=== PATIENT | female | born 1950 | race Caucasian/White ===

== ENCOUNTER 2025-02-04 17:26 | Inpatient (IN) | payer MEDICARE, SELFPAY ==
--- NOTE | 2025-02-04 18:08 | PC.ADMIT ---
Patient arrived to the unit via stretcher at 1740. Alert and oriented x3, full code. 74year old female past medical history cognitive impairment, liver cirrhosis, HTN, A fib /flutter, alcohol use disorder, anxiety, severe major depressive disorder, and chronic PTSD, anxiety Recent visit to [facility] for evaluation for suicidal ideation with plan to slit throat. Upon admission patient appears withdrawn, quiet, stating I never have good day . Anam reports multiple stressors, example not being able to manage financially which makes her feel like suicide is the only resolution. Patient reports history of alcohol use but decline any recent alcohol use and does not feel it is a problem at this time. Skin assessed by this development writer and another RN found to be intact. VSS, patient oriented to the room and unit. Patient changed into hospital attire, no additional complaints at the time of admission.
[2025-02-04 18:21] VITALS: BMI 20.8
[2025-02-04 18:22] VITALS: BP 147/64; PULSE 60; RESP 16; TEMP 36.7; O2SAT 95
--- OUTSIDE RECORDS SUMMARY | 2025-02-04 19:09 | XMS_ITS | Clinical Summary ---
Author Organization [facility] ity Address [address] [place] [address] Care Team Providers Care Hearing Care Practitioner Name Role Phone Unavailable Primary Care Provider Unavailabl e Social History Tobacco Use Types Packs/Day Years Used Date Smoking Tobacco: Never Assessed Comments Unknown Sex and Gender Information Value Date Recorded Sex Assigned at Not on file Legal Sex Female 5:10 PM EST Gender Identity Not on file Sexual Orientation Not on file Plan of Treatment Health Maintenance Due Date Last Done Comments DTaP,Tdap,and Td Vaccines (1 - Tdap) 1969 Pneumococcal Vaccine: 50+ Ye ars (1 of 1 - PCV) 09/01/1999 Zoster Vaccines (1 of 2) 09/01/1999 Depression Screening 03/26/2024 RSV Immunization Adult Patie nts (1 - 1-dose 75+ series) 2024 COVID-19 Vaccine ( - 2024-2 6 season) 2024 Influenza Vaccine (#1) 2024 HIB Vaccines Aged Out No longer eligi ble based on patient's age to complete this topic HPV Vaccines Aged Out No longer eligi ble based on patient's age to complete this topic Hepatitis A Vaccines Aged Out No long er eligible based on patient's age to complete this topic Hepatitis B Vaccines Aged Out No long er eligible based on patient's age to complete this topic IPV Vaccines Aged Out No longer eligi ble based on patient's age to complete this topic MMR Vaccines Aged Out No longer eligi ble based on patient's age to complete this topic Meningococcal ACWY Vaccine Aged Out N o longer eligible based on patient's age to complete this topic Meningococcal B Vaccine Aged Out No l onger eligible based on patient's age to complete this topic RSV Immunization Patients Un asima 20 months Aged Out No longer eligible b ased on patient's age to complete this topic Varicella Vaccines Aged Out No longer eligible based on patient's age to complete this topic
[2025-02-04 20:00] VITALS: BP 125/56; PULSE 59; RESP 16; TEMP 36.8; O2SAT 97
[2025-02-04 21:35] VITALS: BP 128/60
[2025-02-05 08:08] LABS: INTERNATIONAL NORM RATIO 1.3 (0.9-1.1); Prothrombin Time 15.9 SEC (11.2-13.5)
[2025-02-05 08:15] LABS: Alanine Aminotransferase 19 U/L (0-31); Albumin Level 3.9 g/dL (3.5-5.0); Alkaline Phosphatase 54 U/L (39-117); Anion Gap 11 (12-20); Aspartate Amino Transferase 24 U/L (5-31); Blood Urea Nitrogen 22 mg/dL (9-16); Calcium 10.0 mg/dL (8.4-10.2); Carbon Dioxide 28 mmol/L (22-29); Chloride 106 mmol/L (96-108); Cholesterol 157 mg/dL (<200); Creatinine Clr Calc Pharmacy 44.1; Estimated Glomerular Filt Rate > 60; HDL Cholesterol 38 mg/dL (>40); Magnesium 2.2 mg/dL (1.6-2.6); Potassium 3.9 mmol/L (3.3-5.1); Sodium 141 mmol/L (135-145); Total Protein 6.5 g/dL (6.5-8.0); Triglycerides 101 mg/dL (<150)
--- NOTE | 2025-02-05 08:24 | HO.PM.IMCN ---
History of Present Illness Data of Consult Service Date: 02/05/25 Primary Care Provider: Carmina Massey MD [facility] Reason for consult: Medical consult 74-year-old female with past medical history of anxiety and depression, Cognitive impairment, liver cirrhosis, atrial fibrillation or flutter awaiting Watchman procedure, PTSD, alcohol use disorder, hypertension and hyperlipidemia. Presented to [facility] with suicidal ideation. during the ED visit she had episode of bradycardia, subsequently her diltiazem was discontinued. It was not felt that she needed a pacemaker at that time, she is followed by Cardiology outpatient and awaiting a Watchman procedure. Her EKG revealed normal sinus rhythm with a first-degree AV block. electrolytes reveal chronic kidney disease, no electrolyte imbalances, no evidence of liver impairment, ammonia level within normal limits. On exam she has no medical concerns. Review of Systems Review of Systems: Denies any shortness of breath, chest pain, headaches, dysuria, abdominal pain or discomfort, nausea, vomiting or diarrhea. Denies fever or chills. PMFSH Social History Household Members: None Housing: Apartment Do you presently have visiting nurse or other home services: No Comment: on five minute checks Patient Tobacco Use Status: Never used Tobacco Smoked in Last 30 Days: No e-Cigarette/Vaping Use: Never Used Patient Interested in Nicotine Replacement: No Patient Given Instructions on How to Stop Smoking: No Second Hand Smoke Exposure: No Currently Displaying Signs/Symptoms of Drug Intoxication Withdrawal: No Have you been hit, kicked, punched, or otherwise hurt by someone within the past year? If so, by whom?: No Do you feel safe in your current relationship?: No Current Relationship Is there a partner from a previous relationship who is making you feel unsafe now?: No Are you made to feel afraid or neglected: No Spiritual Healthcare Practices: baptism Advance Directives: No Advance Directives Information Provided: Yes Do you have thoughts of harming others: None Do you have a plan to hurt others: No Plan Recently lost weight without trying: Unsure Eating poorly because of decreased appetite: No Nutrition Risks: No Nutritional Risk Patient : No : No Poor oral hygiene: No Meds Allergies Allergy/AdvReac Type Severity Reaction Status Date / Time No Known Allergies Allergy Verified 02/04/25 17:54 Active Medications: Current Medications Acetaminophen (Acetaminophen 325 Mg Tablet) 650 mg PO Q6H PRN PRN Reason: Headache/Pain, Scale 1-10 Al Hydroxide/Mg Hydroxide (Magnesium Hydrox/Alum Hydrox 30 Ml Oral.Susp) 30 ml PO Q6H PRN PRN Reason: Heartburn/Nausea Aripiprazole (Aripiprazole 2 Mg Tablet) 2 mg PO DAILY [facility] Buspirone HCl (Buspirone Hcl 5 Mg Tablet) 15 mg PO BID [facility] Last Admin: 02/04/25 21:34 Dose: 15 mg Clonidine HCl (Clonidine Hcl 0.1 Mg Tablet) 0.1 mg PO BID [facility]; Protocol Last Admin: 02/04/25 21:35 Dose: 0.1 mg Cyanocobalamin (Cyanocobalamin (Vitamin B-12) 100 Mcg Tablet) 100 mcg PO DAILY [facility] Donepezil HCl (Donepezil Hcl 10 Mg Tablet) 10 mg PO DAILY [facility] Folic Acid (Folic Acid 1 Mg Tablet) 1 mg PO DAILY [facility] Hydralazine HCl (Hydralazine Hcl 25 Mg Tablet) 25 mg PO TID [facility]; Protocol Last Admin: 02/04/25 21:35 Dose: 25 mg Hydroxyzine HCl (Hydroxyzine Hcl 25 Mg Tablet) 25 mg PO Q6H PRN PRN Reason: mild anxiety Magnesium Hydroxide (Milk Of Magnesia 30 Ml Oral.Susp) 30 ml PO DAILY PRN PRN Reason: Constipation Melatonin (Melatonin 3 Mg Tablet) 3 mg PO BEDTIME PRN PRN Reason: Insomnia Last Admin: 02/04/25 21:35 Dose: 3 mg Mirtazapine (Mirtazapine 30 Mg Tablet) 30 mg PO BEDTIME RITA Last Admin: 02/04/25 21:35 Dose: 30 mg Multivitamins/Vitamin C (Multivitamin Tablet) 1 tab PO DAILY [facility] Nicotine (Nicotine 21 Mg Patch.Td24) 21 mg TRANSDERMA DAILY PRN PRN Reason: nicotine craving Nicotine Polacrilex (Nicotine Polacrilex 2 Mg Gum) 2 mg BUCCAL Q2H PRN PRN Reason: Nicotine Cravings Olanzapine (Olanzapine 5 Mg Tablet) 5 mg PO BID PRN PRN Reason: agitation Spironolactone (Spironolactone 25 Mg Tablet) 25 mg PO DAILY [facility]; Protocol Thiamine HCl (Thiamine Hcl 100 Mg Tablet) 100 mg PO DAILY [facility] Trazodone HCl (Trazodone Hcl 50 Mg Tablet) 50 mg PO BEDTIME MRX1 PRN PRN Reason: Insomnia Trazodone HCl (Trazodone Hcl 50 Mg Tablet) 50 mg PO BEDTIME RITA Last Admin: 02/04/25 21:35 Dose: 50 mg Home Medications ?Medication ?Instructions ?Recorded ?Confirmed ?Last Taken ?Type aripiprazole 2 mg tablet 2 mg PO DAILY 02/04/25 02/04/25 Unknown History buspirone 15 mg tablet 15 mg PO BID 02/04/25 02/04/25 Unknown History clonidine HCl 0.1 mg tablet 0.1 mg PO BID 02/04/25 02/04/25 Unknown History cyanocobalamin (vitamin B-12) 100 100 mcg PO DAILY 02/04/25 02/04/25 02/04/25 09:00 History mcg tablet donepezil 10 mg tablet 10 mg PO DAILY 02/04/25 02/04/25 Unknown History folic acid 1 mg tablet 1 mg PO DAILY 02/04/25 02/04/25 Unknown History hydralazine 25 mg tablet 25 mg PO TID 02/04/25 02/04/25 Unknown History melatonin 3 mg tablet 3 mg PO BEDTIME PRN Insomnia 02/04/25 02/04/25 Unknown History mirtazapine 30 mg tablet 30 mg PO BEDTIME 02/04/25 02/04/25 Unknown History multivitamin 1 tab PO DAILY 02/04/25 02/04/25 02/04/25 09:00 History spironolactone 25 mg tablet 25 mg PO DAILY 02/04/25 02/04/25 Unknown History thiamine HCl (vitamin B1) 100 mg 100 mg PO DAILY 02/04/25 02/04/25 02/04/25 09:00 History tablet trazodone 50 mg tablet 50 mg PO BEDTIME 02/04/25 02/04/25 Unknown History warfarin 2.5 mg tablet 2.5 - 5 mg PO DAILY 02/04/25 02/04/25 Unknown History Physical Exam Vital Signs and Narrative: Vital Signs: Last Vital Signs Temp 98.3 F 02/04/25 20:00 Pulse 59 02/04/25 20:00 Resp 16 02/04/25 20:00 BP 128/60 02/04/25 21:35 Pulse Ox 97 02/04/25 20:00 O2 Del Method Room Air 02/04/25 20:00 BMI result Body Mass Index 20.8 Alert, cooperative. Neuro: CN II-X11 intact, no deficits, visual acuity intact EYES: PERRLA, EOM intact ENT: Hearing intact, MMM Cardiac: S1 S2 RRR, No ectopy Pulmonary: lungs clear to auscultation, No increased WOB. Abdominal: BS active in all 4 quadrants, no guarding or tenderness MSK: Strength 5/5 upper and lower extremities : Deferred Extremities: No edema in lower extremities Psych: Flat affect, appears fearful and suspicious Skin: Warm and dry, Intact Results Labs 02/05/25 07:21 Labs: Laboratory Results - last 24 hr 02/05/25 07:21 PT 15.9 H INR 1.3 H Anion Gap 11 L Estim Creat Clear Calc 44.1 Estimated GFR > 60 Random Glucose 86 Estimat Average Glucose 108 Hemoglobin A1c % 5.4 Calcium 10.0 Magnesium 2.2 Total Bilirubin 0.3 Direct Bilirubin 0.1 AST 24 ALT 19 Alkaline Phosphatase 54 Total Protein 6.5 Albumin 3.9 Triglycerides 101 Cholesterol 157 LDL Cholesterol, Calc 99 HDL Cholesterol 38 L Assessment and Plan (1) HTN (hypertension): Status: Acute (2) Atrial fibrillation: Status: Acute (3) HLD (hyperlipidemia): Status: Acute Plan 74-year-old female with past medical history as listed below presented to the emergency room with suicide ideation. Now admitted for further stabilization Anxiety/depression/PTSD/cognitive impairment/alcohol use disorder Treatment per psychiatric team Folic acid, thiamine, cyanocobalamin, MVI supplementation AFib/a flutter Continue on warfarin. Daily INRs Patient is awaiting a Watchman procedure Follow up with outpatient Cardiology Not on rate control medications Vitamin-D deficiency Continue on supplementation Hypertension/hyperlipidemia Continue clonidine and hydralazine Blood pressure on review is stable Not on a statin History of liver cirrhosis/alcohol use disorder Follow up outpatient Periodically monitor LFTs Thank you for allowing me to participate in the care of this patient. Will follow with you, please notify medical provider with any changes in condition or concerns.
[2025-02-05 08:31] VITALS: BP 132/61; PULSE 68; RESP 18; TEMP 36.6; O2SAT 98
[2025-02-05 08:32] LABS: Free T4 (Free Thyroxine) 1.12 ng/dL (0.71-1.85); Thyroid Stimulating Hormone 1.09 uIU/mL (0.32-4.0)
[2025-02-05 08:45] LABS: Folate 14.6 ng/mL (> or = 4.0); Vitamin B12 626 pg/mL (200-900)
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
[2025-02-05 14:25] VITALS: BP 153/70; PULSE 77
[2025-02-05 20:00] VITALS: BP 134/63; PULSE 63; RESP 18; TEMP 36.7; O2SAT 97
[2025-02-05 21:39] VITALS: BP 138/65
[2025-02-05 21:40] VITALS: BP 138/65
[2025-02-06 08:00] VITALS: BP 142/65; PULSE 76; RESP 18; TEMP 36.8; O2SAT 96
[2025-02-06 08:07] LABS: INTERNATIONAL NORM RATIO 1.3 (0.9-1.1); Prothrombin Time 15.5 SEC (11.2-13.5)
--- NOTE | 2025-02-06 09:11 | HO.PSYCHPN ---
Subjective Subjective Date of Service: 02/06/25 Reason For Visit: Orly Mdd w/o Psychosis;PTSD Subjective Notes: Conditional Voluntary Interim History: Pt reports sleeping through the night. She continues to present as very hopeless, helpless. No intent to end her life but continues to report suicidal ideation. She would like to see more programming. also would like to meet with financial services director. No behavioral concerns. taking medications. Mental Status Exam Mental Status Exam Narrative: Appearance: wearing hospital gown, fair hygiene, in NAD Behavior: guarded, superficially cooperative Psychomotor: mild resting/action tremor on right hand more than left. Speech: clear, normal rate/rhythm/volume, spontaneous TP: linear TC: feeling hopeless, yet asked to go to hospital and seeking help Mood: depressed Affect: constricted SI: suicidal thoughts, denies intent on basis of congregational concern and affecting close friend. HI: none VH/AH: none Delusions: none Insight/judgment: fair x 2. memory/cog: alert, oriented x 3. MOCA 20/30, ACL 3.6 Diagnostics Vital Signs (24Hr): Vital Signs - 24 hr 02/05/25 14:25 02/05/25 20:00 02/05/25 21:39 Temperature 98.1 F Pulse Rate 77 63 Respiratory Rate 18 Blood Pressure 153/70 H 134/63 138/65 Pulse Oximetry 97 Oxygen Delivery Method Room Air 02/05/25 21:40 02/06/25 08:00 Temperature 98.2 F Pulse Rate 76 Respiratory Rate 18 Blood Pressure 138/65 142/65 H Pulse Oximetry 96 Oxygen Delivery Method Room Air BMI result Body Mass Index 20.0 Labs 02/05/25 07:21 Labs: Laboratory Results - last 48 hr 02/05/25 02/06/25 07:21 07:26 PT 15.9 H 15.5 H INR 1.3 H 1.3 H Sodium 141 Potassium 3.9 Chloride 106 Carbon Dioxide 28 Anion Gap 11 L BUN 22 H Creatinine 0.87 Estim Creat Clear Calc 44.1 Estimated GFR > 60 Random Glucose 86 Estimat Average Glucose 108 Hemoglobin A1c % 5.4 Calcium 10.0 Magnesium 2.2 Total Bilirubin 0.3 Direct Bilirubin 0.1 AST 24 ALT 19 Alkaline Phosphatase 54 Total Protein 6.5 Albumin 3.9 Triglycerides 101 Cholesterol 157 LDL Cholesterol, Calc 99 HDL Cholesterol 38 L Vitamin B12 626 Folate 14.6 TSH 1.09 Free T4 1.12 Medications Medications Current Medications Acetaminophen (Acetaminophen 325 Mg Tablet) 650 mg PO Q6H PRN PRN Reason: Headache/Pain, Scale 1-10 Last Admin: 02/05/25 21:44 Dose: 650 mg Al Hydroxide/Mg Hydroxide (Magnesium Hydrox/Alum Hydrox 30 Ml Oral.Susp) 30 ml PO Q6H PRN PRN Reason: Heartburn/Nausea Aripiprazole (Aripiprazole 5 Mg Tablet) 5 mg PO DAILY [facility] Buspirone HCl (Buspirone Hcl 5 Mg Tablet) 15 mg PO BID [facility] Last Admin: 02/05/25 21:40 Dose: 15 mg Clonidine HCl (Clonidine Hcl 0.1 Mg Tablet) 0.1 mg PO BID [facility]; Protocol Last Admin: 02/05/25 21:39 Dose: 0.1 mg Cyanocobalamin (Cyanocobalamin (Vitamin B-12) 100 Mcg Tablet) 100 mcg PO DAILY [facility] Last Admin: 02/05/25 08:34 Dose: 100 mcg Donepezil HCl (Donepezil Hcl 10 Mg Tablet) 10 mg PO DAILY [facility] Last Admin: 02/05/25 08:35 Dose: 10 mg Folic Acid (Folic Acid 1 Mg Tablet) 1 mg PO DAILY [facility] Last Admin: 02/05/25 08:34 Dose: 1 mg Hydralazine HCl (Hydralazine Hcl 25 Mg Tablet) 25 mg PO TID [facility]; Protocol Last Admin: 02/05/25 21:40 Dose: 25 mg Hydroxyzine HCl (Hydroxyzine Hcl 25 Mg Tablet) 25 mg PO Q6H PRN PRN Reason: mild anxiety Magnesium Hydroxide (Milk Of Magnesia 30 Ml Oral.Susp) 30 ml PO DAILY PRN PRN Reason: Constipation Melatonin (Melatonin 3 Mg Tablet) 3 mg PO BEDTIME PRN PRN Reason: Insomnia Last Admin: 02/05/25 21:45 Dose: 3 mg Mirtazapine (Mirtazapine 30 Mg Tablet) 30 mg PO BEDTIME [facility] Last Admin: 02/05/25 21:40 Dose: 30 mg Multivitamins/Vitamin C (Multivitamin Tablet) 1 tab PO DAILY [facility] Last Admin: 02/05/25 08:35 Dose: 1 tab Nicotine (Nicotine 21 Mg Patch.Td24) 21 mg TRANSDERMA DAILY PRN PRN Reason: nicotine craving Nicotine Polacrilex (Nicotine Polacrilex 2 Mg Gum) 2 mg BUCCAL Q2H PRN PRN Reason: Nicotine Cravings Olanzapine (Olanzapine 5 Mg Tablet) 5 mg PO BID PRN PRN Reason: agitation Spironolactone (Spironolactone 25 Mg Tablet) 25 mg PO DAILY [facility]; Protocol Last Admin: 02/05/25 08:34 Dose: 25 mg Thiamine HCl (Thiamine Hcl 100 Mg Tablet) 100 mg PO DAILY [facility] Last Admin: 02/05/25 08:34 Dose: 100 mg Trazodone HCl (Trazodone Hcl 50 Mg Tablet) 50 mg PO BEDTIME MRX1 PRN PRN Reason: Insomnia Trazodone HCl (Trazodone Hcl 50 Mg Tablet) 50 mg PO BEDTIME [facility] Last Admin: 02/05/25 21:41 Dose: 50 mg Allergies Allergies Allergy/AdvReac Type Severity Reaction Status Date / Time No Known Allergies Allergy Verified 02/04/25 17:54 Assessment & Plan Assessment & Plan (1) HTN (hypertension): Status: Acute Code(s): I10 - Essential (primary) hypertension (2) Atrial fibrillation: Status: Acute Code(s): I48.91 - Unspecified atrial fibrillation (3) HLD (hyperlipidemia): Status: Acute Code(s): E78.5 - Hyperlipidemia, unspecified (4) MDD (major depressive disorder), recurrent episode, severe: Status: Acute Code(s): F33.2 - Major depressive disorder, recurrent severe without psychotic features (5) Chronic post-traumatic stress disorder (PTSD): Status: Acute Code(s): F43.12 - Post-traumatic stress disorder, chronic Plan Ms. Trevino is a 74 year-old woman with hx of MDD, PTSD, alcohol use disorder in remission who was brought via EMS to [facility] after told friend that she was having suicidal ideation with multiple plans including electrocution, OD on meds or cut her wrist. Pt was voluntary for psychiatric treatment and had reported prior psychiatric admissions to be helpful. She continues to present as hopeless, helpless, suicidal ideation although denies intent to end her life due to spiritual believes and concern of how it would impact her close friend Nimco. We discussed risks, benefits and alternative treatment options. During ED visit at [facility], pt found to be bradycardic, diltiazam was discontinued, seen by cardiology did not recommend pacemaker placement and she is due OP for a watchman procedure. However, during this hospitalist, will continue to monitor s/s of bradycardia and if noted cardiology should be consulted promptly. She is currently on clonidine although less impact on HR continue to monitor BP. She is also on aricept which does cause bradycardia. Currently, her HR has been >60. PLAN 02/06 continue tx. hopeless, helpless. may consider adding venlafaxine to remeron and abilify. Reason for continued inpatient stay Substantial Risk for: harm to self and rapid decompensation Time Spent With Patient Time: Total time managing care of this patient today ____ minutes.
[2025-02-06 14:28] VITALS: BP 141/109
[2025-02-06 20:00] VITALS: BP 123/59; PULSE 70; RESP 16; TEMP 36.3; O2SAT 96
[2025-02-07 08:00] VITALS: BP 117/57; PULSE 90; RESP 15; TEMP 2.7; TEMP 36.9; O2SAT 95
[2025-02-07 08:53] LABS: INTERNATIONAL NORM RATIO 1.6 (0.9-1.1); Prothrombin Time 19.1 SEC (11.2-13.5)
--- NOTE | 2025-02-07 09:25 | P.PNPSI_ITS ---
Subjective Subjective Date of Service: 02/07/25 Reason For Visit: Orly Mdd w/o Psychosis;PTSD Interim History: Reports feeling depressed and anxious. Appears irritated. Poor EC. Jerry responses. Dysphoric. Denies SI. Denies AVH. Tolerating increase Abilify without side effects. Review of Systems Review of Systems Denies any shortness of breath, chest pain, headaches, dysuria, abdominal pain or discomfort, nausea, vomiting or diarrhea. Denies fever or chills. Mental Status Exam Mental Status Exam Narrative: Appearance: wearing hospital gown, fair hygiene, in NAD Behavior: guarded, superficially cooperative Psychomotor: mild resting/action tremor on right hand more than left. Speech: clear, normal rate/rhythm/volume, spontaneous TP: linear TC: feeling hopeless, yet asked to go to hospital and seeking help Mood: depressed Affect: constricted SI: suicidal thoughts, denies intent on basis of jewish concern and affecting close friend. HI: none VH/AH: none Delusions: none Insight/judgment: fair x 2. memory/cog: alert, oriented x 3. MOCA 20/30, ACL 3.6 Diagnostics Vital Signs (24Hr): Vital Signs - 24 hr 02/06/25 14:28 02/06/25 20:00 02/07/25 08:00 Temperature 97.3 F 36.9 F L Pulse Rate 70 90 Respiratory Rate 16 15 Blood Pressure 141/109 H 123/59 L 117/57 L Pulse Oximetry 96 95 Oxygen Delivery Method Room Air Room Air BMI result Body Mass Index 20.0 Labs 02/05/25 07:21 Labs: Laboratory Results - last 48 hr 02/06/25 02/07/25 07:26 08:32 PT 15.5 H 19.1 H D INR 1.3 H 1.6 H Medications Medications Current Medications Acetaminophen (Acetaminophen 325 Mg Tablet) 650 mg PO Q6H PRN PRN Reason: Headache/Pain, Scale 1-10 Last Admin: 02/06/25 14:28 Dose: 650 mg Al Hydroxide/Mg Hydroxide (Magnesium Hydrox/Alum Hydrox 30 Ml Oral.Susp) 30 ml PO Q6H PRN PRN Reason: Heartburn/Nausea Aripiprazole (Aripiprazole 5 Mg Tablet) 5 mg PO DAILY [facility] Last Admin: 02/07/25 08:59 Dose: 5 mg Buspirone HCl (Buspirone Hcl 5 Mg Tablet) 15 mg PO BID [facility] Last Admin: 02/07/25 08:58 Dose: 15 mg Clonidine HCl (Clonidine Hcl 0.1 Mg Tablet) 0.1 mg PO BID [facility]; Protocol Last Admin: 02/07/25 09:00 Dose: 0.1 mg Cyanocobalamin (Cyanocobalamin (Vitamin B-12) 100 Mcg Tablet) 100 mcg PO DAILY [facility] Last Admin: 02/07/25 09:00 Dose: 100 mcg Donepezil HCl (Donepezil Hcl 10 Mg Tablet) 10 mg PO DAILY [facility] Last Admin: 02/07/25 08:58 Dose: 10 mg Folic Acid (Folic Acid 1 Mg Tablet) 1 mg PO DAILY [facility] Last Admin: 02/07/25 09:00 Dose: 1 mg Hydralazine HCl (Hydralazine Hcl 25 Mg Tablet) 25 mg PO TID [facility]; Protocol Last Admin: 02/07/25 08:59 Dose: 25 mg Hydroxyzine HCl (Hydroxyzine Hcl 25 Mg Tablet) 25 mg PO Q6H PRN PRN Reason: mild anxiety Last Admin: 02/06/25 12:13 Dose: 25 mg Lorazepam (Lorazepam 0.5 Mg Tablet) 0.5 mg PO Q8H PRN PRN Reason: Anxiety Magnesium Hydroxide (Milk Of Magnesia 30 Ml Oral.Susp) 30 ml PO DAILY PRN PRN Reason: Constipation Melatonin (Melatonin 3 Mg Tablet) 3 mg PO BEDTIME PRN PRN Reason: Insomnia Last Admin: 02/06/25 20:17 Dose: 3 mg Mirtazapine (Mirtazapine 30 Mg Tablet) 30 mg PO BEDTIME [facility] Last Admin: 02/06/25 20:15 Dose: 30 mg Multivitamins/Vitamin C (Multivitamin Tablet) 1 tab PO DAILY [facility] Last Admin: 02/07/25 08:58 Dose: 1 tab Nicotine (Nicotine 21 Mg Patch.Td24) 21 mg TRANSDERMA DAILY PRN PRN Reason: nicotine craving Nicotine Polacrilex (Nicotine Polacrilex 2 Mg Gum) 2 mg BUCCAL Q2H PRN PRN Reason: Nicotine Cravings Olanzapine (Olanzapine 5 Mg Tablet) 5 mg PO BID PRN PRN Reason: agitation Spironolactone (Spironolactone 25 Mg Tablet) 25 mg PO DAILY [facility]; Protocol Last Admin: 02/07/25 08:59 Dose: 25 mg Thiamine HCl (Thiamine Hcl 100 Mg Tablet) 100 mg PO DAILY [facility] Last Admin: 02/07/25 08:58 Dose: 100 mg Trazodone HCl (Trazodone Hcl 50 Mg Tablet) 50 mg PO BEDTIME MRX1 PRN PRN Reason: Insomnia Trazodone HCl (Trazodone Hcl 50 Mg Tablet) 50 mg PO BEDTIME [facility] Last Admin: 02/06/25 20:15 Dose: 50 mg Warfarin Sodium (Warfarin Sodium 5 Mg Tablet) 5 mg PO DAILY@1800 [facility] Last Admin: 02/06/25 17:13 Dose: 5 mg Allergies Allergies Allergy/AdvReac Type Severity Reaction Status Date / Time No Known Allergies Allergy Verified 02/04/25 17:54 Assessment & Plan Assessment & Plan (1) MDD (major depressive disorder), recurrent episode, severe: Status: Acute Code(s): F33.2 - Major depressive disorder, recurrent severe without psychotic features (2) Chronic post-traumatic stress disorder (PTSD): Status: Acute Code(s): F43.12 - Post-traumatic stress disorder, chronic Plan Assessment & Plan (1) MDD (major depressive disorder), recurrent episode, severe: Status: Acute Code(s): F33.2 - Major depressive disorder, recurrent severe without psychotic features (2) Chronic post-traumatic stress disorder (PTSD): Status: Acute Code(s): F43.12 - Post-traumatic stress disorder, chronic Plan Ms. Trevino is a 74 year-old woman with hx of MDD, PTSD, alcohol use disorder in remission who was brought via EMS to [facility] after told friend that she was having suicidal ideation with multiple plans including electrocution, OD on meds or cut her wrist. Pt was voluntary for psychiatric treatment and had reported prior psychiatric admissions to be helpful. She continues to present as hopeless, helpless, suicidal ideation although denies intent to end her life due to spiritual believes and concern of how it would impact her close friend Nimco. We discussed risks, benefits and alternative treatment options. During ED visit [place] [facility], pt found to be bradycardic, diltiazam was discontinued, seen by cardiology did not recommend pacemaker placement and she is due OP for a watchman procedure. However, during this hospitalist, will continue to monitor s/s of bradycardia and if noted cardiology should be consulted promptly. She is currently on clonidine although less impact on HR continue to monitor BP. She is also on aricept which does cause bradycardia. Currently, her HR has been >60. PLAN 1. Admit to S1, CV, 15 minutes checks for safety 2. Increase abilify to 5mg po daily. continue remeron 30mg po qhs. may consider adding effexor. continue clonidine, buspar. 3. obtain collateral information 4. OT assessments 5. Aftercare planning 02/07: continue current management and treatment plan. Reason for continued inpatient stay Substantial Risk for: harm to self and rapid decompensation Time Spent With Patient Time: Total time managing care of this patient today ____ minutes.
[2025-02-07 14:43] VITALS: BP 125/58
[2025-02-07 20:00] VITALS: BP 144/65; PULSE 66; RESP 16; TEMP 37.1; O2SAT 97
[2025-02-08 08:00] VITALS: BP 140/63; PULSE 70; TEMP 36.9; O2SAT 99
[2025-02-08 08:11] LABS: INTERNATIONAL NORM RATIO 1.9 (0.9-1.1); Prothrombin Time 22.8 SEC (11.2-13.5)
--- NOTE | 2025-02-08 12:26 | HO.PSYCHPN ---
Subjective Subjective Date of Service: 02/08/25 Reason For Visit: Orly Mdd w/o Psychosis;PTSD Interim History: Reports feeling depressed and anxious. Dysphoric. She is visible on the unit. Engages with some peers. Appears irritated. Poor EC. Jerry responses. Denies SI. Denies AVH. Tolerating increase Abilify without side effects. Review of Systems Review of Systems Denies any shortness of breath, chest pain, headaches, dysuria, abdominal pain or discomfort, nausea, vomiting or diarrhea. Denies fever or chills. Mental Status Exam Mental Status Exam Narrative: Appearance: wearing hospital gown, fair hygiene, in NAD Behavior: guarded, superficially cooperative Psychomotor: mild resting/action tremor on right hand more than left. Speech: clear, normal rate/rhythm/volume, spontaneous TP: linear TC: feeling hopeless, yet asked to go to hospital and seeking help Mood: depressed Affect: constricted SI: suicidal thoughts, denies intent on basis of jehovah's witness concern and affecting close friend. HI: none VH/AH: none Delusions: none Insight/judgment: fair x 2. memory/cog: alert, oriented x 3. MOCA 20/30, ACL 3.6 Diagnostics Vital Signs (24Hr): Vital Signs - 24 hr 02/07/25 14:43 02/07/25 20:00 02/08/25 08:00 Temperature 98.8 F 98.4 F Pulse Rate 66 70 Respiratory Rate 16 Blood Pressure 125/58 L 144/65 H 140/63 H Pulse Oximetry 97 99 Oxygen Delivery Method Room Air Room Air BMI result Body Mass Index 20.0 Labs 02/05/25 07:21 Labs: Laboratory Results - last 48 hr 02/07/25 02/08/25 08:32 07:50 PT 19.1 H D 22.8 H INR 1.6 H 1.9 H Medications Medications Current Medications Acetaminophen (Acetaminophen 325 Mg Tablet) 650 mg PO Q6H PRN PRN Reason: Headache/Pain, Scale 1-10 Last Admin: 02/08/25 11:56 Dose: 650 mg Al Hydroxide/Mg Hydroxide (Magnesium Hydrox/Alum Hydrox 30 Ml Oral.Susp) 30 ml PO Q6H PRN PRN Reason: Heartburn/Nausea Aripiprazole (Aripiprazole 5 Mg Tablet) 5 mg PO DAILY [facility] Last Admin: 02/08/25 09:07 Dose: 5 mg Buspirone HCl (Buspirone Hcl 5 Mg Tablet) 15 mg PO BID [facility] Last Admin: 02/08/25 09:06 Dose: 15 mg Clonidine HCl (Clonidine Hcl 0.1 Mg Tablet) 0.1 mg PO BID [facility]; Protocol Last Admin: 02/08/25 09:07 Dose: 0.1 mg Cyanocobalamin (Cyanocobalamin (Vitamin B-12) 100 Mcg Tablet) 100 mcg PO DAILY [facility] Last Admin: 02/08/25 09:07 Dose: 100 mcg Donepezil HCl (Donepezil Hcl 10 Mg Tablet) 10 mg PO DAILY [facility] Last Admin: 02/08/25 09:07 Dose: 10 mg Folic Acid (Folic Acid 1 Mg Tablet) 1 mg PO DAILY [facility] Last Admin: 02/08/25 09:07 Dose: 1 mg Hydralazine HCl (Hydralazine Hcl 25 Mg Tablet) 25 mg PO TID [facility]; Protocol Last Admin: 02/08/25 09:07 Dose: 25 mg Hydroxyzine HCl (Hydroxyzine Hcl 25 Mg Tablet) 25 mg PO Q6H PRN PRN Reason: mild anxiety Last Admin: 02/06/25 12:13 Dose: 25 mg Lorazepam (Lorazepam 0.5 Mg Tablet) 0.5 mg PO Q8H PRN PRN Reason: Anxiety Last Admin: 02/07/25 21:07 Dose: 0.5 mg Magnesium Hydroxide (Milk Of Magnesia 30 Ml Oral.Susp) 30 ml PO DAILY PRN PRN Reason: Constipation Melatonin (Melatonin 3 Mg Tablet) 3 mg PO BEDTIME PRN PRN Reason: Insomnia Last Admin: 02/07/25 21:07 Dose: 3 mg Mirtazapine (Mirtazapine 30 Mg Tablet) 30 mg PO BEDTIME [facility] Last Admin: 02/07/25 21:06 Dose: 30 mg Multivitamins/Vitamin C (Multivitamin Tablet) 1 tab PO DAILY [facility] Last Admin: 02/08/25 09:07 Dose: 1 tab Nicotine (Nicotine 21 Mg Patch.Td24) 21 mg TRANSDERMA DAILY PRN PRN Reason: nicotine craving Nicotine Polacrilex (Nicotine Polacrilex 2 Mg Gum) 2 mg BUCCAL Q2H PRN PRN Reason: Nicotine Cravings Olanzapine (Olanzapine 5 Mg Tablet) 5 mg PO BID PRN PRN Reason: agitation Spironolactone (Spironolactone 25 Mg Tablet) 25 mg PO DAILY [facility]; Protocol Last Admin: 02/08/25 09:06 Dose: 25 mg Thiamine HCl (Thiamine Hcl 100 Mg Tablet) 100 mg PO DAILY [facility] Last Admin: 02/08/25 09:07 Dose: 100 mg Trazodone HCl (Trazodone Hcl 50 Mg Tablet) 50 mg PO BEDTIME MRX1 PRN PRN Reason: Insomnia Trazodone HCl (Trazodone Hcl 50 Mg Tablet) 50 mg PO BEDTIME [facility] Last Admin: 02/07/25 21:07 Dose: 50 mg Warfarin Sodium (Warfarin Sodium 5 Mg Tablet) 5 mg PO DAILY@1800 [facility] Last Admin: 02/07/25 17:58 Dose: 5 mg Allergies Allergies Allergy/AdvReac Type Severity Reaction Status Date / Time No Known Allergies Allergy Verified 02/04/25 17:54 Assessment & Plan Assessment & Plan (1) MDD (major depressive disorder), recurrent episode, severe: Status: Acute Code(s): F33.2 - Major depressive disorder, recurrent severe without psychotic features (2) Chronic post-traumatic stress disorder (PTSD): Status: Acute Code(s): F43.12 - Post-traumatic stress disorder, chronic Plan Ms. Trevino is a 74 year-old woman with hx of MDD, PTSD, alcohol use disorder in remission who was brought via EMS to [facility] after told friend that she was having suicidal ideation with multiple plans including electrocution, OD on meds or cut her wrist. Pt was voluntary for psychiatric treatment and had reported prior psychiatric admissions to be helpful. She continues to present as hopeless, helpless, suicidal ideation although denies intent to end her life due to spiritual believes and concern of how it would impact her close friend Nimco. We discussed risks, benefits and alternative treatment options. During ED visit at [facility] [place], pt found to be bradycardic, diltiazam was discontinued, seen by cardiology did not recommend pacemaker placement and she is due OP for a watchman procedure. However, during this hospitalist, will continue to monitor s/s of bradycardia and if noted cardiology should be consulted promptly. She is currently on clonidine although less impact on HR continue to monitor BP. She is also on aricept which does cause bradycardia. Currently, her HR has been >60. PLAN 1. Admit to S1, CV, 15 minutes checks for safety 2. Increase abilify to 5mg po daily. continue remeron 30mg po qhs. may consider adding effexor. continue clonidine, buspar. 3. obtain collateral information 4. OT assessments 5. Aftercare planning 02/08: continue current management and treatment plan. Reason for continued inpatient stay Substantial Risk for: harm to self and rapid decompensation Time Spent With Patient Time: Total time managing care of this patient today ____ minutes.
[2025-02-08 14:08] VITALS: BP 116/58
[2025-02-08 20:00] VITALS: BP 145/67; PULSE 68; RESP 16; TEMP 36.3; O2SAT 97
[2025-02-09 07:55] LABS: INTERNATIONAL NORM RATIO 2.5 (0.9-1.1); Prothrombin Time 30.0 SEC (11.2-13.5)
[2025-02-09 08:40] VITALS: BP 118/58; PULSE 73; RESP 16; TEMP 36.1; O2SAT 95
--- NOTE | 2025-02-09 10:37 | HO.PSYCHPN ---
Subjective Subjective Date of Service: 02/09/25 Reason For Visit: Orly Mdd w/o Psychosis;PTSD Subjective Notes: Conditional Voluntary Interim History: Pt slept through the night. She continues to endorse depressed mood, hopeless, helpless. She continues to report passive SI. She wants friend to have keys of her apartment but unclear reason as friend is in [place]. She had made comments about if she dies friend to be able to assess her apartment. We discussed increasing abilify to 10mg po daily as she reports this has been the medication that has helped her the most. Mental Status Exam Mental Status Exam Narrative: Appearance: wearing hospital gown, fair hygiene, in NAD Behavior: guarded, superficially cooperative Psychomotor: mild resting/action tremor on right hand more than left. Speech: clear, normal rate/rhythm/volume, spontaneous TP: linear TC: feeling hopeless, yet asked to go to hospital and seeking help Mood: depressed Affect: constricted SI: suicidal thoughts, denies intent on basis of confucianist concern and affecting close friend. HI: none VH/AH: none Delusions: none Insight/judgment: fair x 2. memory/cog: alert, oriented x 3. MOCA 20/30, ACL 3.6 Diagnostics Vital Signs (24Hr): Vital Signs - 24 hr 02/08/25 14:08 02/08/25 20:00 02/09/25 08:40 Temperature 97.4 F 97 F Pulse Rate 68 73 Respiratory Rate 16 16 Blood Pressure 116/58 L 145/67 H 118/58 L Pulse Oximetry 97 95 Oxygen Delivery Method Room Air Room Air BMI result Body Mass Index 20.0 Labs 02/05/25 07:21 Labs: Laboratory Results - last 48 hr 02/08/25 02/09/25 07:50 07:11 PT 22.8 H 30.0 H D INR 1.9 H 2.5 H Medications Medications Current Medications Acetaminophen (Acetaminophen 325 Mg Tablet) 650 mg PO Q6H PRN PRN Reason: Headache/Pain, Scale 1-10 Last Admin: 02/08/25 20:37 Dose: 650 mg Al Hydroxide/Mg Hydroxide (Magnesium Hydrox/Alum Hydrox 30 Ml Oral.Susp) 30 ml PO Q6H PRN PRN Reason: Heartburn/Nausea Aripiprazole (Aripiprazole 5 Mg Tablet) 5 mg PO DAILY [facility] Last Admin: 02/09/25 09:39 Dose: 5 mg Buspirone HCl (Buspirone Hcl 5 Mg Tablet) 15 mg PO BID [facility] Last Admin: 02/09/25 09:37 Dose: 15 mg Clonidine HCl (Clonidine Hcl 0.1 Mg Tablet) 0.1 mg PO BID [facility]; Protocol Last Admin: 02/09/25 09:39 Dose: 0.1 mg Cyanocobalamin (Cyanocobalamin (Vitamin B-12) 100 Mcg Tablet) 100 mcg PO DAILY [facility] Last Admin: 02/09/25 09:39 Dose: 100 mcg Donepezil HCl (Donepezil Hcl 10 Mg Tablet) 10 mg PO DAILY [facility] Last Admin: 02/09/25 09:40 Dose: 10 mg Folic Acid (Folic Acid 1 Mg Tablet) 1 mg PO DAILY [facility] Last Admin: 02/09/25 09:39 Dose: 1 mg Hydralazine HCl (Hydralazine Hcl 25 Mg Tablet) 25 mg PO TID [facility]; Protocol Last Admin: 02/09/25 09:38 Dose: 25 mg Hydroxyzine HCl (Hydroxyzine Hcl 25 Mg Tablet) 25 mg PO Q6H PRN PRN Reason: mild anxiety Last Admin: 02/06/25 12:13 Dose: 25 mg Lorazepam (Lorazepam 0.5 Mg Tablet) 0.5 mg PO Q8H PRN PRN Reason: Anxiety Last Admin: 02/08/25 20:37 Dose: 0.5 mg Magnesium Hydroxide (Milk Of Magnesia 30 Ml Oral.Susp) 30 ml PO DAILY PRN PRN Reason: Constipation Melatonin (Melatonin 3 Mg Tablet) 3 mg PO BEDTIME PRN PRN Reason: Insomnia Last Admin: 02/08/25 20:37 Dose: 3 mg Mirtazapine (Mirtazapine 30 Mg Tablet) 30 mg PO BEDTIME [facility] Last Admin: 02/08/25 20:36 Dose: 30 mg Multivitamins/Vitamin C (Multivitamin Tablet) 1 tab PO DAILY [facility] Last Admin: 02/09/25 09:39 Dose: 1 tab Nicotine (Nicotine 21 Mg Patch.Td24) 21 mg TRANSDERMA DAILY PRN PRN Reason: nicotine craving Nicotine Polacrilex (Nicotine Polacrilex 2 Mg Gum) 2 mg BUCCAL Q2H PRN PRN Reason: Nicotine Cravings Olanzapine (Olanzapine 5 Mg Tablet) 5 mg PO BID PRN PRN Reason: agitation Spironolactone (Spironolactone 25 Mg Tablet) 25 mg PO DAILY [facility]; Protocol Last Admin: 02/09/25 09:38 Dose: 25 mg Thiamine HCl (Thiamine Hcl 100 Mg Tablet) 100 mg PO DAILY [facility] Last Admin: 02/09/25 09:39 Dose: 100 mg Trazodone HCl (Trazodone Hcl 50 Mg Tablet) 50 mg PO BEDTIME MRX1 PRN PRN Reason: Insomnia Trazodone HCl (Trazodone Hcl 50 Mg Tablet) 50 mg PO BEDTIME [facility] Last Admin: 02/08/25 20:36 Dose: 50 mg Warfarin Sodium (Warfarin Sodium 5 Mg Tablet) 5 mg PO DAILY@1800 [facility] Last Admin: 02/08/25 18:38 Dose: 5 mg Allergies Allergies Allergy/AdvReac Type Severity Reaction Status Date / Time No Known Allergies Allergy Verified 02/04/25 17:54 Assessment & Plan Assessment & Plan (1) MDD (major depressive disorder), recurrent episode, severe: Status: Acute Code(s): F33.2 - Major depressive disorder, recurrent severe without psychotic features (2) HTN (hypertension): Status: Acute Code(s): I10 - Essential (primary) hypertension (3) Atrial fibrillation: Status: Acute Code(s): I48.91 - Unspecified atrial fibrillation (4) HLD (hyperlipidemia): Status: Acute Code(s): E78.5 - Hyperlipidemia, unspecified (5) Chronic post-traumatic stress disorder (PTSD): Status: Acute Code(s): F43.12 - Post-traumatic stress disorder, chronic Plan Ms. Trevino is a 74 year-old woman with hx of MDD, PTSD, alcohol use disorder in remission who was brought via EMS to [facility] after told friend that she was having suicidal ideation with multiple plans including electrocution, OD on meds or cut her wrist. Pt was voluntary for psychiatric treatment and had reported prior psychiatric admissions to be helpful. She continues to present as hopeless, helpless, suicidal ideation although denies intent to end her life due to spiritual believes and concern of how it would impact her close friend Nimco. We discussed risks, benefits and alternative treatment options. During ED visit at [facility], pt found to be bradycardic, diltiazam was discontinued, seen by cardiology did not recommend pacemaker placement and she is due OP for a watchman procedure. However, during this hospitalist, will continue to monitor s/s of bradycardia and if noted cardiology should be consulted promptly. She is currently on clonidine although less impact on HR continue to monitor BP. She is also on aricept which does cause bradycardia. Currently, her HR has been >60. PLAN 02/06 continue tx. hopeless, helpless. may consider adding venlafaxine to remeron and abilify. 02/09 increase abilify 10mg po daily. continue remeron 30mg po qhs. Reason for continued inpatient stay Substantial Risk for: inability to function Time Spent With Patient Time: Total time managing care of this patient today ____ minutes.
[2025-02-09 14:17] VITALS: BP 151/69; PULSE 91; RESP 16; TEMP 36.6
[2025-02-09 20:00] VITALS: BP 133/62; PULSE 66; RESP 16; TEMP 36.1; O2SAT 96
[2025-02-10 08:00] VITALS: BP 159/75; PULSE 51; RESP 19; TEMP 36.3; O2SAT 95
[2025-02-10 08:20] LABS: INTERNATIONAL NORM RATIO 2.7 (0.9-1.1); Prothrombin Time 32.2 SEC (11.2-13.5)
[2025-02-10 09:09] VITALS: BP 159/75
[2025-02-10 09:10] VITALS: BP 159/75
--- NOTE | 2025-02-10 09:13 | P.PNPSI_ITS ---
Subjective Subjective Date of Service: 02/10/25 Reason For Visit: Seveegab Mdd w/o Psychosis;PTSD Subjective Notes: Conditional Voluntary Interim History: Pt is sleeping through the night. She has been taking medications as prescribed. We had family meeting- pt uplifted by idea that she can go to an [facility]. She denied SI/HI. She reported mood was much better as she could see more hopeful future for herself. She has been visible on the unit, social with select peers. HR has been consistently>60. Diagnostics Vital Signs (24Hr): Vital Signs - 24 hr 02/09/25 14:17 02/09/25 20:00 02/10/25 09:09 Temperature 97.9 F 97 F Pulse Rate 91 66 Respiratory Rate 16 16 Blood Pressure 151/69 H 133/62 159/75 H Pulse Oximetry 96 Oxygen Delivery Method Room Air 02/10/25 09:10 02/10/25 09:10 Temperature Pulse Rate Respiratory Rate Blood Pressure 159/75 H 159/75 H Pulse Oximetry Oxygen Delivery Method BMI result Body Mass Index 20.0 Labs 02/05/25 07:21 Labs: Laboratory Results - last 48 hr 02/09/25 02/10/25 07:11 07:23 PT 30.0 H D 32.2 H INR 2.5 H 2.7 H Medications Medications Current Medications Acetaminophen (Acetaminophen 325 Mg Tablet) 650 mg PO Q6H PRN PRN Reason: Headache/Pain, Scale 1-10 Last Admin: 02/09/25 20:56 Dose: 650 mg Al Hydroxide/Mg Hydroxide (Magnesium Hydrox/Alum Hydrox 30 Ml Oral.Susp) 30 ml PO Q6H PRN PRN Reason: Heartburn/Nausea Aripiprazole (Aripiprazole 10 Mg Tablet) 10 mg PO DAILY [facility] Last Admin: 02/10/25 09:09 Dose: 10 mg Buspirone HCl (Buspirone Hcl 5 Mg Tablet) 15 mg PO BID [facility] Last Admin: 02/10/25 09:10 Dose: 15 mg Clonidine HCl (Clonidine Hcl 0.1 Mg Tablet) 0.1 mg PO BID [facility]; Protocol Last Admin: 02/10/25 09:10 Dose: 0.1 mg Cyanocobalamin (Cyanocobalamin (Vitamin B-12) 100 Mcg Tablet) 100 mcg PO DAILY [facility] Last Admin: 02/10/25 09:10 Dose: 100 mcg Donepezil HCl (Donepezil Hcl 10 Mg Tablet) 10 mg PO DAILY [facility] Last Admin: 02/10/25 09:10 Dose: 10 mg Folic Acid (Folic Acid 1 Mg Tablet) 1 mg PO DAILY [facility] Last Admin: 02/10/25 09:10 Dose: 1 mg Hydralazine HCl (Hydralazine Hcl 25 Mg Tablet) 25 mg PO TID [facility]; Protocol Last Admin: 02/10/25 09:10 Dose: 25 mg Hydroxyzine HCl (Hydroxyzine Hcl 25 Mg Tablet) 25 mg PO Q6H PRN PRN Reason: mild anxiety Last Admin: 02/06/25 12:13 Dose: 25 mg Loperamide HCl (Loperamide Hcl 2 Mg Capsule) 2 mg PO Q4H PRN PRN Reason: loose stools Last Admin: 02/09/25 14:39 Dose: 2 mg Lorazepam (Lorazepam 0.5 Mg Tablet) 0.5 mg PO Q8H PRN PRN Reason: Anxiety Last Admin: 02/09/25 20:57 Dose: 0.5 mg Magnesium Hydroxide (Milk Of Magnesia 30 Ml Oral.Susp) 30 ml PO DAILY PRN PRN Reason: Constipation Melatonin (Melatonin 3 Mg Tablet) 3 mg PO BEDTIME PRN PRN Reason: Insomnia Last Admin: 02/09/25 20:57 Dose: 3 mg Mirtazapine (Mirtazapine 30 Mg Tablet) 30 mg PO BEDTIME [facility] Last Admin: 02/09/25 20:57 Dose: 30 mg Multivitamins/Vitamin C (Multivitamin Tablet) 1 tab PO DAILY [facility] Last Admin: 02/10/25 09:10 Dose: 1 tab Nicotine (Nicotine 21 Mg Patch.Td24) 21 mg TRANSDERMA DAILY PRN PRN Reason: nicotine craving Nicotine Polacrilex (Nicotine Polacrilex 2 Mg Gum) 2 mg BUCCAL Q2H PRN PRN Reason: Nicotine Cravings Olanzapine (Olanzapine 5 Mg Tablet) 5 mg PO BID PRN PRN Reason: agitation Spironolactone (Spironolactone 25 Mg Tablet) 25 mg PO DAILY [facility]; Protocol Last Admin: 02/10/25 09:09 Dose: 25 mg Thiamine HCl (Thiamine Hcl 100 Mg Tablet) 100 mg PO DAILY [facility] Last Admin: 02/10/25 09:10 Dose: 100 mg Trazodone HCl (Trazodone Hcl 50 Mg Tablet) 50 mg PO BEDTIME MRX1 PRN PRN Reason: Insomnia Trazodone HCl (Trazodone Hcl 50 Mg Tablet) 50 mg PO BEDTIME [facility] Last Admin: 02/09/25 20:56 Dose: 50 mg Warfarin Sodium (Warfarin Sodium 5 Mg Tablet) 5 mg PO DAILY@1800 [facility] Last Admin: 02/09/25 18:09 Dose: 5 mg Allergies Allergies Allergy/AdvReac Type Severity Reaction Status Date / Time No Known Allergies Allergy Verified 02/04/25 17:54 Assessment & Plan Assessment & Plan (1) MDD (major depressive disorder), recurrent episode, severe: Status: Acute Code(s): F33.2 - Major depressive disorder, recurrent severe without psychotic features (2) HTN (hypertension): Status: Acute Code(s): I10 - Essential (primary) hypertension (3) Atrial fibrillation: Status: Acute Code(s): I48.91 - Unspecified atrial fibrillation (4) HLD (hyperlipidemia): Status: Acute Code(s): E78.5 - Hyperlipidemia, unspecified (5) Chronic post-traumatic stress disorder (PTSD): Status: Acute Code(s): F43.12 - Post-traumatic stress disorder, chronic Plan Ms. Trevino is a 74 year-old woman with hx of MDD, PTSD, alcohol use disorder in remission who was brought via EMS to [facility] after told friend that she was having suicidal ideation with multiple plans including electrocution, OD on meds or cut her wrist. Pt was voluntary for psychiatric treatment and had reported prior psychiatric admissions to be helpful. She continues to present as hopeless, helpless, suicidal ideation although denies intent to end her life due to spiritual believes and concern of how it would impact her close friend Nimco. We discussed risks, benefits and alternative treatment options. During ED visit at [facility], pt found to be bradycardic, diltiazam was discontinued, seen by cardiology did not recommend pacemaker placement and she is due OP for a watchman procedure. However, during this hospitalist, will continue to monitor s/s of bradycardia and if noted cardiology should be consulted promptly. She is currently on clonidine although less impact on HR continue to monitor BP. She is also on aricept which does cause bradycardia. Currently, her HR has been >60. PLAN 02/06 continue tx. hopeless, helpless. may consider adding venlafaxine to remeron and abilify. 02/09 increase abilify 10mg po daily. continue remeron 30mg po qhs. 02/10 family meeting to discuss tx and results of cognitive assessments. pt seemed uplifted by idea of going to [facility]. She denied SI/HI. She reported her mood is much better today. Reason for continued inpatient stay Substantial Risk for: inability to function Time Spent With Patient Time: Total time managing care of this patient today ____ minutes.
[2025-02-10 14:42] VITALS: BP 135/60
[2025-02-10 20:00] VITALS: BP 121/58; PULSE 79; RESP 15; TEMP 36.5; O2SAT 96
[2025-02-10 20:58] VITALS: BP 121/60
[2025-02-11 07:48] LABS: INTERNATIONAL NORM RATIO 3.2 (0.9-1.1); Prothrombin Time 37.5 SEC (11.2-13.5)
[2025-02-11 08:00] VITALS: BP 118/63; PULSE 82; RESP 16; TEMP 36.9; O2SAT 97
[2025-02-11 08:15] VITALS: BP 118/63
[2025-02-11 08:16] VITALS: BP 118/63
--- NOTE | 2025-02-11 09:00 | PC.NURSE ---
Notified Maritza Grubbs NP of INR 3.2.
--- NOTE | 2025-02-11 09:34 | P.PNPSI_ITS ---
Subjective Subjective Date of Service: 02/11/25 Reason For Visit: Orly Mdd w/o Psychosis;PTSD Subjective Notes: Conditional Voluntary Interim History: Pt slept through the night. She was seen by OT does not think walker is needed. She reports mood is significantly improved but feels like being here is not helping, thinks unit is too loud. She does agree with going to [facility] and having interview from facility. No VH/AH. No aggression towards self or others. Mental Status Exam Mental Status Exam Narrative: Appearance: wearing hospital gown, fair hygiene, in NAD Behavior: guarded, superficially cooperative Psychomotor: mild resting/action tremor on right hand more than left. Speech: clear, normal rate/rhythm/volume, spontaneous TP: linear TC: feeling hopeless, yet asked to go to hospital and seeking help Mood: depressed Affect: constricted SI: suicidal thoughts, denies intent on basis of cheondoism concern and affecting close friend. HI: none VH/AH: none Delusions: none Insight/judgment: fair x 2. memory/cog: alert, oriented x 3. MOCA 20/30, ACL 3.6 Diagnostics Vital Signs (24Hr): Vital Signs - 24 hr 02/10/25 14:42 02/10/25 20:00 02/10/25 20:58 Temperature 97.7 F Pulse Rate 79 Respiratory Rate 15 Blood Pressure 135/60 121/58 L 121/60 Pulse Oximetry 96 Oxygen Delivery Method Room Air 02/10/25 20:58 02/11/25 08:00 02/11/25 08:15 Temperature 98.4 F Pulse Rate 82 Respiratory Rate 16 Blood Pressure 121/60 118/63 118/63 Pulse Oximetry 97 Oxygen Delivery Method Room Air 02/11/25 08:16 02/11/25 08:16 Temperature Pulse Rate Respiratory Rate Blood Pressure 118/63 118/63 Pulse Oximetry Oxygen Delivery Method BMI result Body Mass Index 20.0 Labs 02/05/25 07:21 Labs: Laboratory Results - last 48 hr 02/10/25 02/11/25 07:23 07:11 PT 32.2 H 37.5 H INR 2.7 H 3.2 H Medications Medications Current Medications Acetaminophen (Acetaminophen 325 Mg Tablet) 650 mg PO Q6H PRN PRN Reason: Headache/Pain, Scale 1-10 Last Admin: 02/10/25 14:39 Dose: 650 mg Al Hydroxide/Mg Hydroxide (Magnesium Hydrox/Alum Hydrox 30 Ml Oral.Susp) 30 ml PO Q6H PRN PRN Reason: Heartburn/Nausea Aripiprazole (Aripiprazole 10 Mg Tablet) 10 mg PO DAILY [facility] Last Admin: 02/11/25 08:15 Dose: 10 mg Buspirone HCl (Buspirone Hcl 5 Mg Tablet) 15 mg PO BID [facility] Last Admin: 02/11/25 08:15 Dose: 15 mg Clonidine HCl (Clonidine Hcl 0.1 Mg Tablet) 0.1 mg PO BID [facility]; Protocol Last Admin: 02/11/25 08:16 Dose: 0.1 mg Cyanocobalamin (Cyanocobalamin (Vitamin B-12) 100 Mcg Tablet) 100 mcg PO DAILY [facility] Last Admin: 02/11/25 08:15 Dose: 100 mcg Donepezil HCl (Donepezil Hcl 10 Mg Tablet) 10 mg PO DAILY [facility] Last Admin: 02/11/25 08:15 Dose: 10 mg Folic Acid (Folic Acid 1 Mg Tablet) 1 mg PO DAILY [facility] Last Admin: 02/11/25 08:15 Dose: 1 mg Hydralazine HCl (Hydralazine Hcl 25 Mg Tablet) 25 mg PO TID [facility]; Protocol Last Admin: 02/11/25 08:16 Dose: 25 mg Hydroxyzine HCl (Hydroxyzine Hcl 25 Mg Tablet) 25 mg PO Q6H PRN PRN Reason: mild anxiety Last Admin: 02/06/25 12:13 Dose: 25 mg Loperamide HCl (Loperamide Hcl 2 Mg Capsule) 2 mg PO Q4H PRN PRN Reason: loose stools Last Admin: 02/09/25 14:39 Dose: 2 mg Lorazepam (Lorazepam 0.5 Mg Tablet) 0.5 mg PO Q8H PRN PRN Reason: Anxiety Last Admin: 02/09/25 20:57 Dose: 0.5 mg Magnesium Hydroxide (Milk Of Magnesia 30 Ml Oral.Susp) 30 ml PO DAILY PRN PRN Reason: Constipation Melatonin (Melatonin 3 Mg Tablet) 3 mg PO BEDTIME PRN PRN Reason: Insomnia Last Admin: 02/10/25 21:02 Dose: 3 mg Mirtazapine (Mirtazapine 30 Mg Tablet) 30 mg PO BEDTIME [facility] Last Admin: 02/10/25 20:58 Dose: 30 mg Multivitamins/Vitamin C (Multivitamin Tablet) 1 tab PO DAILY [facility] Last Admin: 02/11/25 08:15 Dose: 1 tab Nicotine (Nicotine 21 Mg Patch.Td24) 21 mg TRANSDERMA DAILY PRN PRN Reason: nicotine craving Nicotine Polacrilex (Nicotine Polacrilex 2 Mg Gum) 2 mg BUCCAL Q2H PRN PRN Reason: Nicotine Cravings Olanzapine (Olanzapine 5 Mg Tablet) 5 mg PO BID PRN PRN Reason: agitation Spironolactone (Spironolactone 25 Mg Tablet) 25 mg PO DAILY [facility]; Protocol Last Admin: 02/11/25 08:15 Dose: 25 mg Thiamine HCl (Thiamine Hcl 100 Mg Tablet) 100 mg PO DAILY [facility] Last Admin: 02/11/25 08:15 Dose: 100 mg Trazodone HCl (Trazodone Hcl 50 Mg Tablet) 50 mg PO BEDTIME MRX1 PRN PRN Reason: Insomnia Trazodone HCl (Trazodone Hcl 50 Mg Tablet) 50 mg PO BEDTIME [facility] Last Admin: 02/10/25 20:57 Dose: 50 mg Warfarin Sodium (Warfarin Sodium 5 Mg Tablet) 5 mg PO DAILY@1800 [facility] Last Admin: 02/10/25 18:34 Dose: 5 mg Allergies Allergies Allergy/AdvReac Type Severity Reaction Status Date / Time No Known Allergies Allergy Verified 02/04/25 17:54 Assessment & Plan Assessment & Plan (1) MDD (major depressive disorder), recurrent episode, severe: Status: Acute Code(s): F33.2 - Major depressive disorder, recurrent severe without psychotic features (2) HTN (hypertension): Status: Acute Code(s): I10 - Essential (primary) hypertension (3) Atrial fibrillation: Status: Acute Code(s): I48.91 - Unspecified atrial fibrillation (4) HLD (hyperlipidemia): Status: Acute Code(s): E78.5 - Hyperlipidemia, unspecified (5) Chronic post-traumatic stress disorder (PTSD): Status: Acute Code(s): F43.12 - Post-traumatic stress disorder, chronic Plan Ms. Trevino is a 74 year-old woman with hx of MDD, PTSD, alcohol use disorder in remission who was brought via EMS to [facility] after told friend that she was having suicidal ideation with multiple plans including electrocution, OD on meds or cut her wrist. Pt was voluntary for psychiatric treatment and had reported prior psychiatric admissions to be helpful. She continues to present as hopeless, helpless, suicidal ideation although denies intent to end her life due to spiritual believes and concern of how it would impact her close friend Nimco. We discussed risks, benefits and alternative treatment options. During ED visit at [facility], pt found to be bradycardic, diltiazam was discontinued, seen by cardiology did not recommend pacemaker placement and she is due OP for a watchman procedure. However, during this hospitalist, will continue to monitor s/s of bradycardia and if noted cardiology should be consulted promptly. She is currently on clonidine although less impact on HR continue to monitor BP. She is also on aricept which does cause bradycardia. Currently, her HR has been >60. PLAN 02/06 continue tx. hopeless, helpless. may consider adding venlafaxine to remeron and abilify. 02/09 increase abilify 10mg po daily. continue remeron 30mg po qhs. 02/10 family meeting to discuss tx and results of cognitive assessments. pt seemed uplifted by idea of going to [facility]. She denied SI/HI. She reported her mood is much better today. 02/11 continue current medications. Reason for continued inpatient stay Substantial Risk for: inability to function Time Spent With Patient Time: Total time managing care of this patient today ____ minutes.
[2025-02-11 13:55] VITALS: BP 127/63
--- NOTE | 2025-02-11 14:06 | PC.NURSE ---
Sarah Meneses BOTTLE FILLER notified on INR 3.2.
--- NOTE | 2025-02-11 14:17 | PC.NURSE ---
Requested Wilma, Dr. Horn notified for order.
--- NOTE | 2025-02-11 14:24 | PM.EVENT ---
Event Note Date of Service: 02/11/25 Event Note: Patient's INR 3.2 today. As an outpatient patient was taking 5 mg alternating with 2.5. Has been on 5 mg since 02/06. We will give patient 2.5 mg tonight and recheck in the morning. Goal is INR of 2-3. Time Spent With Patient Time: Total time managing care of this patient today ____ minutes.
--- NOTE | 2025-02-11 17:51 | PC.NURSE ---
Addendum entered by Sarahi Robert RN 02/11/25 17:51: Patient alert and orientated, quiet but socializing with some peers. Pt ate 50% of her dinner. 2.5mg of PO Coumidan admin, next PT/INR 02/12. Continue POC Original Note: Shift Review 3pm-7pm, n
[2025-02-11 20:00] VITALS: BP 136/63; PULSE 71; RESP 16; TEMP 37.1; O2SAT 97
[2025-02-12 08:00] VITALS: BP 149/65; PULSE 69; RESP 16; TEMP 36.3; O2SAT 96
[2025-02-12 08:01] LABS: INTERNATIONAL NORM RATIO 3.2 (0.9-1.1); Prothrombin Time 38.1 SEC (11.2-13.5)
[2025-02-12 08:26] VITALS: BP 149/65
[2025-02-12 08:27] VITALS: BP 149/65
--- NOTE | 2025-02-12 09:49 | HO.PSYCHPN ---
Subjective Subjective Date of Service: 02/12/25 Reason For Visit: Orly Mdd w/o Psychosis;PTSD Subjective Notes: Conditional Voluntary Interim History: Pt slept through the night. She is visible on the unit, social with select peer. She reports she is dying of boredom here on the unit. She reports unit is too loud and would like to leave soon. No SI/HI. She reports feels more hopeful now that she realizes she can go to [facility]. VS stable. ambulating without a walker. HR>60 consistently. Diagnostics Vital Signs (24Hr): Vital Signs - 24 hr 02/11/25 13:55 02/11/25 20:00 02/12/25 08:00 Temperature 98.7 F 97.4 F Pulse Rate 71 69 Respiratory Rate 16 16 Blood Pressure 127/63 136/63 149/65 H Pulse Oximetry 97 96 Oxygen Delivery Method Room Air Room Air 02/12/25 08:26 02/12/25 08:26 02/12/25 08:27 Temperature Pulse Rate Respiratory Rate Blood Pressure 149/65 H 149/65 H 149/65 H Pulse Oximetry Oxygen Delivery Method BMI result Body Mass Index 20.0 Labs 02/05/25 07:21 Labs: Laboratory Results - last 48 hr 02/11/25 02/12/25 07:11 07:32 PT 37.5 H 38.1 H INR 3.2 H 3.2 H Medications Medications Current Medications Acetaminophen (Acetaminophen 325 Mg Tablet) 650 mg PO Q6H PRN PRN Reason: Headache/Pain, Scale 1-10 Last Admin: 02/12/25 08:34 Dose: 650 mg Al Hydroxide/Mg Hydroxide (Magnesium Hydrox/Alum Hydrox 30 Ml Oral.Susp) 30 ml PO Q6H PRN PRN Reason: Heartburn/Nausea Aripiprazole (Aripiprazole 10 Mg Tablet) 10 mg PO DAILY [facility] Last Admin: 02/12/25 08:27 Dose: 10 mg Buspirone HCl (Buspirone Hcl 5 Mg Tablet) 15 mg PO BID [facility] Last Admin: 02/12/25 08:27 Dose: 15 mg Clonidine HCl (Clonidine Hcl 0.1 Mg Tablet) 0.1 mg PO BID [facility]; Protocol Last Admin: 02/12/25 08:26 Dose: 0.1 mg Cyanocobalamin (Cyanocobalamin (Vitamin B-12) 100 Mcg Tablet) 100 mcg PO DAILY [facility] Last Admin: 02/12/25 08:27 Dose: 100 mcg Donepezil HCl (Donepezil Hcl 10 Mg Tablet) 10 mg PO DAILY [facility] Last Admin: 02/12/25 08:26 Dose: 10 mg Folic Acid (Folic Acid 1 Mg Tablet) 1 mg PO DAILY [facility] Last Admin: 02/12/25 08:27 Dose: 1 mg Hydralazine HCl (Hydralazine Hcl 25 Mg Tablet) 25 mg PO TID [facility]; Protocol Last Admin: 02/12/25 08:26 Dose: 25 mg Hydroxyzine HCl (Hydroxyzine Hcl 25 Mg Tablet) 25 mg PO Q6H PRN PRN Reason: mild anxiety Last Admin: 02/06/25 12:13 Dose: 25 mg Loperamide HCl (Loperamide Hcl 2 Mg Capsule) 2 mg PO Q4H PRN PRN Reason: loose stools Last Admin: 02/09/25 14:39 Dose: 2 mg Lorazepam (Lorazepam 0.5 Mg Tablet) 0.5 mg PO Q8H PRN PRN Reason: Anxiety Last Admin: 02/09/25 20:57 Dose: 0.5 mg Magnesium Hydroxide (Milk Of Magnesia 30 Ml Oral.Susp) 30 ml PO DAILY PRN PRN Reason: Constipation Melatonin (Melatonin 3 Mg Tablet) 3 mg PO BEDTIME PRN PRN Reason: Insomnia Last Admin: 02/11/25 20:13 Dose: 3 mg Mirtazapine (Mirtazapine 30 Mg Tablet) 30 mg PO BEDTIME [facility] Last Admin: 02/11/25 20:02 Dose: 30 mg Multivitamins/Vitamin C (Multivitamin Tablet) 1 tab PO DAILY [facility] Last Admin: 02/12/25 08:26 Dose: 1 tab Nicotine (Nicotine 21 Mg Patch.Td24) 21 mg TRANSDERMA DAILY PRN PRN Reason: nicotine craving Nicotine Polacrilex (Nicotine Polacrilex 2 Mg Gum) 2 mg BUCCAL Q2H PRN PRN Reason: Nicotine Cravings Olanzapine (Olanzapine 5 Mg Tablet) 5 mg PO BID PRN PRN Reason: agitation Spironolactone (Spironolactone 25 Mg Tablet) 25 mg PO DAILY [facility]; Protocol Last Admin: 02/12/25 08:27 Dose: 25 mg Thiamine HCl (Thiamine Hcl 100 Mg Tablet) 100 mg PO DAILY [facility] Last Admin: 02/12/25 08:26 Dose: 100 mg Trazodone HCl (Trazodone Hcl 50 Mg Tablet) 50 mg PO BEDTIME MRX1 PRN PRN Reason: Insomnia Trazodone HCl (Trazodone Hcl 50 Mg Tablet) 50 mg PO BEDTIME [facility] Last Admin: 02/11/25 20:02 Dose: 50 mg Allergies Allergies Allergy/AdvReac Type Severity Reaction Status Date / Time No Known Allergies Allergy Verified 02/04/25 17:54 Assessment & Plan Assessment & Plan (1) MDD (major depressive disorder), recurrent episode, severe: Status: Acute Code(s): F33.2 - Major depressive disorder, recurrent severe without psychotic features (2) HTN (hypertension): Status: Acute Code(s): I10 - Essential (primary) hypertension (3) Atrial fibrillation: Status: Acute Code(s): I48.91 - Unspecified atrial fibrillation (4) HLD (hyperlipidemia): Status: Acute Code(s): E78.5 - Hyperlipidemia, unspecified (5) Chronic post-traumatic stress disorder (PTSD): Status: Acute Code(s): F43.12 - Post-traumatic stress disorder, chronic Plan Ms. Trevino is a 74 year-old woman with hx of MDD, PTSD, alcohol use disorder in remission who was brought via EMS to [facility] after told friend that she was having suicidal ideation with multiple plans including electrocution, OD on meds or cut her wrist. Pt was voluntary for psychiatric treatment and had reported prior psychiatric admissions to be helpful. She continues to present as hopeless, helpless, suicidal ideation although denies intent to end her life due to spiritual believes and concern of how it would impact her close friend Nimco. We discussed risks, benefits and alternative treatment options. [place] [facility] [place] found to be bradycardic, diltiazam was discontinued, seen by cardiology did not recommend pacemaker placement and she is due OP for a watchman procedure. However, during this hospitalist, will continue to monitor s/s of bradycardia and if noted cardiology should be consulted promptly. She is currently on clonidine although less impact on HR continue to monitor BP. She is also on aricept which does cause bradycardia. Currently, her HR has been >60. PLAN 02/06 continue tx. hopeless, helpless. may consider adding venlafaxine to remeron and abilify. 11/17 increase abilify 10mg po daily. continue remeron 30mg po qhs. 02/10 family meeting to discuss tx and results of cognitive assessments. pt seemed uplifted by idea of going to [facility]. She denied SI/HI. She reported her mood is much better today. 02/11 continue current medications. 02/12 continue tx. denies SI/HI. Reason for continued inpatient stay Substantial Risk for: inability to function Time Spent With Patient Time: Total time managing care of this patient today ____ minutes.
[2025-02-12 12:44] VITALS: BMI 21.0
[2025-02-12 14:56] VITALS: BP 126/61
[2025-02-12 20:00] VITALS: BP 134/63; PULSE 72; RESP 16; TEMP 36.6; O2SAT 97
[2025-02-13 07:56] LABS: INTERNATIONAL NORM RATIO 3.0 (0.9-1.1); Prothrombin Time 35.8 SEC (11.2-13.5)
[2025-02-13 08:00] VITALS: BP 135/59; PULSE 75; RESP 16; TEMP 36.7; O2SAT 97
[2025-02-13 08:35] VITALS: BP 135/59
[2025-02-13 08:36] VITALS: BP 135/59
--- NOTE | 2025-02-13 09:39 | P.PNPSI_ITS ---
Subjective Subjective Date of Service: 02/13/25 Reason For Visit: Orly Mdd w/o Psychosis;PTSD Subjective Notes: Conditional Voluntary Interim History: Pt slept through the night. No change. She is visible on the unit, social with select peer. She reports she is dying of boredom here on the unit. She reports unit is too loud and would like to leave soon. No SI/HI. She reports feels more hopeful now that she realizes she can go to [facility]. VS stable. ambulating without a walker. HR>60 consistently. Review of Systems Review of Systems Denies any shortness of breath, chest pain, headaches, dysuria, abdominal pain or discomfort, nausea, vomiting or diarrhea. Denies fever or chills. Mental Status Exam Mental Status Exam Narrative: Appearance: wearing hospital gown, fair hygiene, in NAD Behavior: guarded, superficially cooperative Psychomotor: mild resting/action tremor on right hand more than left. Speech: clear, normal rate/rhythm/volume, spontaneous TP: linear TC: feeling hopeless, yet asked to go to hospital and seeking help Mood: depressed Affect: constricted SI: suicidal thoughts, denies intent on basis of orthodox concern and affecting close friend. HI: none VH/AH: none Delusions: none Insight/judgment: fair x 2. memory/cog: alert, oriented x 3. MOCA 20/30, ACL 3.6 Diagnostics Vital Signs (24Hr): Vital Signs - 24 hr 02/12/25 14:56 02/12/25 20:00 02/13/25 08:00 Temperature 98 F 98.0 F Pulse Rate 72 75 Respiratory Rate 16 16 Blood Pressure 126/61 134/63 135/59 L Pulse Oximetry 97 97 Oxygen Delivery Method Room Air Room Air 02/13/25 08:35 02/13/25 08:36 02/13/25 08:36 Temperature Pulse Rate Respiratory Rate Blood Pressure 135/59 L 135/59 L 135/59 L Pulse Oximetry Oxygen Delivery Method BMI result Body Mass Index 21.0 Labs 02/05/25 07:21 Labs: Laboratory Results - last 48 hr 02/12/25 02/13/25 07:32 07:18 PT 38.1 H 35.8 H INR 3.2 H 3.0 H Medications Medications Current Medications Acetaminophen (Acetaminophen 325 Mg Tablet) 650 mg PO Q6H PRN PRN Reason: Headache/Pain, Scale 1-10 Last Admin: 02/12/25 20:22 Dose: 650 mg Al Hydroxide/Mg Hydroxide (Magnesium Hydrox/Alum Hydrox 30 Ml Oral.Susp) 30 ml PO Q6H PRN PRN Reason: Heartburn/Nausea Aripiprazole (Aripiprazole 10 Mg Tablet) 10 mg PO DAILY [facility] Last Admin: 02/13/25 08:36 Dose: 10 mg Buspirone HCl (Buspirone Hcl 5 Mg Tablet) 15 mg PO BID [facility] Last Admin: 02/13/25 08:36 Dose: 15 mg Clonidine HCl (Clonidine Hcl 0.1 Mg Tablet) 0.1 mg PO BID [facility]; Protocol Last Admin: 02/13/25 08:35 Dose: 0.1 mg Cyanocobalamin (Cyanocobalamin (Vitamin B-12) 100 Mcg Tablet) 100 mcg PO DAILY [facility] Last Admin: 02/13/25 08:36 Dose: 100 mcg Donepezil HCl (Donepezil Hcl 10 Mg Tablet) 10 mg PO DAILY [facility] Last Admin: 02/13/25 08:35 Dose: 10 mg Folic Acid (Folic Acid 1 Mg Tablet) 1 mg PO DAILY [facility] Last Admin: 02/13/25 08:36 Dose: 1 mg Hydralazine HCl (Hydralazine Hcl 25 Mg Tablet) 25 mg PO TID [facility]; Protocol Last Admin: 02/13/25 08:36 Dose: 25 mg Hydroxyzine HCl (Hydroxyzine Hcl 25 Mg Tablet) 25 mg PO Q6H PRN PRN Reason: mild anxiety Last Admin: 02/06/25 12:13 Dose: 25 mg Loperamide HCl (Loperamide Hcl 2 Mg Capsule) 2 mg PO Q4H PRN PRN Reason: loose stools Last Admin: 02/09/25 14:39 Dose: 2 mg Lorazepam (Lorazepam 0.5 Mg Tablet) 0.5 mg PO Q8H PRN PRN Reason: Anxiety Last Admin: 02/09/25 20:57 Dose: 0.5 mg Magnesium Hydroxide (Milk Of Magnesia 30 Ml Oral.Susp) 30 ml PO DAILY PRN PRN Reason: Constipation Melatonin (Melatonin 3 Mg Tablet) 3 mg PO BEDTIME PRN PRN Reason: Insomnia Last Admin: 02/11/25 20:13 Dose: 3 mg Mirtazapine (Mirtazapine 30 Mg Tablet) 30 mg PO BEDTIME [facility] Last Admin: 02/12/25 20:22 Dose: 30 mg Multivitamins/Vitamin C (Multivitamin Tablet) 1 tab PO DAILY [facility] Last Admin: 02/13/25 08:35 Dose: 1 tab Nicotine (Nicotine 21 Mg Patch.Td24) 21 mg TRANSDERMA DAILY PRN PRN Reason: nicotine craving Nicotine Polacrilex (Nicotine Polacrilex 2 Mg Gum) 2 mg BUCCAL Q2H PRN PRN Reason: Nicotine Cravings Olanzapine (Olanzapine 5 Mg Tablet) 5 mg PO BID PRN PRN Reason: agitation Spironolactone (Spironolactone 25 Mg Tablet) 25 mg PO DAILY [facility]; Protocol Last Admin: 02/13/25 08:36 Dose: 25 mg Thiamine HCl (Thiamine Hcl 100 Mg Tablet) 100 mg PO DAILY [facility] Last Admin: 02/13/25 08:35 Dose: 100 mg Trazodone HCl (Trazodone Hcl 50 Mg Tablet) 50 mg PO BEDTIME MRX1 PRN PRN Reason: Insomnia Trazodone HCl (Trazodone Hcl 50 Mg Tablet) 50 mg PO BEDTIME [facility] Last Admin: 02/12/25 20:21 Dose: 50 mg Warfarin Sodium (Warfarin Sodium 2.5 Mg Tablet) 2.5 mg PO DAILY@1800 [facility] Allergies Allergies Allergy/AdvReac Type Severity Reaction Status Date / Time No Known Allergies Allergy Verified 02/04/25 17:54 Assessment & Plan Assessment & Plan (1) MDD (major depressive disorder), recurrent episode, severe: Status: Acute Code(s): F33.2 - Major depressive disorder, recurrent severe without psychotic features (2) HTN (hypertension): Status: Acute Code(s): I10 - Essential (primary) hypertension (3) Atrial fibrillation: Status: Acute Code(s): I48.91 - Unspecified atrial fibrillation (4) HLD (hyperlipidemia): Status: Acute Code(s): E78.5 - Hyperlipidemia, unspecified (5) Chronic post-traumatic stress disorder (PTSD): Status: Acute Code(s): F43.12 - Post-traumatic stress disorder, chronic Plan Ms. Trevino is a 74 year-old woman with hx of MDD, PTSD, alcohol use disorder in remission who was brought via EMS to [facility] after told friend that she was having suicidal ideation with multiple plans including electrocution, OD on meds or cut her wrist. Pt was voluntary for psychiatric treatment and had reported prior psychiatric admissions to be helpful. She continues to present as hopeless, helpless, suicidal ideation although denies intent to end her life due to spiritual believes and concern of how it would impact her close friend Nimco. We discussed risks, benefits and alternative treatment options. [place] [facility] [place] found to be bradycardic, diltiazam was discontinued, seen by cardiology did not recommend pacemaker placement and she is due OP for a watchman procedure. However, during this hospitalist, will continue to monitor s/s of bradycardia and if noted cardiology should be consulted promptly. She is currently on clonidine although less impact on HR continue to monitor BP. She is also on aricept which does cause bradycardia. Currently, her HR has been >60. PLAN 02/06 continue tx. hopeless, helpless. may consider adding venlafaxine to remeron and abilify. 02/09 increase abilify 10mg po daily. continue remeron 30mg po qhs. 02/10 family meeting to discuss tx and results of cognitive assessments. pt seemed uplifted by idea of going to [facility]. She denied SI/HI. She reported her mood is much better today. 02/11 continue current medications. 02/12 continue tx. denies SI/HI. 02/13 taking medications, no side effects. denies SI/HI. Reason for continued inpatient stay Substantial Risk for: inability to function Time Spent With Patient Time: Total time managing care of this patient today ____ minutes.
[2025-02-13 14:58] VITALS: BP 137/61
[2025-02-13 20:00] VITALS: BP 129/60; PULSE 61; RESP 16; TEMP 36.2; O2SAT 96
[2025-02-14 08:29] VITALS: BP 135/63; PULSE 75; RESP 16; TEMP 36.9; O2SAT 96
[2025-02-14 09:03] LABS: INTERNATIONAL NORM RATIO 2.8 (0.9-1.1); Prothrombin Time 32.8 SEC (11.2-13.5); Prothrombin Time 33.5 SEC (11.2-13.5)
--- NOTE | 2025-02-14 12:21 | P.PNPSI_ITS ---
Subjective Subjective Date of Service: 02/14/25 Reason For Visit: Orly Mdd w/o Psychosis;PTSD Subjective Notes: Conditional Voluntary Interim History: Patient was seen and discussed in rounds today. Records and plans were reviewed. She has been stable. No behavioral issues. Eating and sleeping adequately. Anxious and afraid of leaving the unit. Eating and sleeping adequately. No changes were made Review of Systems Review of Systems Yes all other systems are reviewed and are negative Mental Status Exam Mental Status Exam Narrative: Appearance: wearing hospital gown, fair hygiene, in NAD Behavior: guarded, superficially cooperative Psychomotor: mild resting/action tremor on right hand more than left. Speech: clear, normal rate/rhythm/volume, spontaneous TP: linear TC: feeling hopeless, yet asked to go to hospital and seeking help Mood: depressed Affect: constricted SI: suicidal thoughts, denies intent on basis of sabianism concern and affecting close friend. HI: none VH/AH: none Delusions: none Insight/judgment: fair x 2. memory/cog: alert, oriented x 3. MOCA 20/30, ACL 3.6 Diagnostics Vital Signs (24Hr): Vital Signs - 24 hr 02/13/25 14:58 02/13/25 20:00 02/14/25 08:29 Temperature 97.2 F 98.5 F Pulse Rate 61 75 Respiratory Rate 16 16 Blood Pressure 137/61 129/60 135/63 Pulse Oximetry 96 96 Oxygen Delivery Method Room Air Room Air BMI result Body Mass Index 21.0 Labs 02/05/25 07:21 Labs: Laboratory Results - last 48 hr 02/13/25 02/14/25 02/14/25 07:18 08:28 08:28 PT 35.8 H 32.8 H 33.5 H INR 3.0 H 2.8 H 02/14/25 08:28 PT INR 2.8 H Medications Medications Current Medications Acetaminophen (Acetaminophen 325 Mg Tablet) 650 mg PO Q6H PRN PRN Reason: Headache/Pain, Scale 1-10 Last Admin: 02/13/25 18:30 Dose: 650 mg Al Hydroxide/Mg Hydroxide (Magnesium Hydrox/Alum Hydrox 30 Ml Oral.Susp) 30 ml PO Q6H PRN PRN Reason: Heartburn/Nausea Aripiprazole (Aripiprazole 10 Mg Tablet) 10 mg PO DAILY [facility] Last Admin: 02/14/25 08:34 Dose: 10 mg Buspirone HCl (Buspirone Hcl 5 Mg Tablet) 15 mg PO BID [facility] Last Admin: 02/14/25 08:33 Dose: 15 mg Clonidine HCl (Clonidine Hcl 0.1 Mg Tablet) 0.1 mg PO BID [facility]; Protocol Last Admin: 02/14/25 08:35 Dose: 0.1 mg Cyanocobalamin (Cyanocobalamin (Vitamin B-12) 100 Mcg Tablet) 100 mcg PO DAILY [facility] Last Admin: 02/14/25 08:37 Dose: 100 mcg Donepezil HCl (Donepezil Hcl 10 Mg Tablet) 10 mg PO DAILY [facility] Last Admin: 02/14/25 08:37 Dose: 10 mg Folic Acid (Folic Acid 1 Mg Tablet) 1 mg PO DAILY [facility] Last Admin: 02/14/25 08:35 Dose: 1 mg Hydralazine HCl (Hydralazine Hcl 25 Mg Tablet) 25 mg PO TID [facility]; Protocol Last Admin: 02/14/25 08:33 Dose: 25 mg Hydroxyzine HCl (Hydroxyzine Hcl 25 Mg Tablet) 25 mg PO Q6H PRN PRN Reason: mild anxiety Last Admin: 02/06/25 12:13 Dose: 25 mg Loperamide HCl (Loperamide Hcl 2 Mg Capsule) 2 mg PO Q4H PRN PRN Reason: loose stools Last Admin: 02/09/25 14:39 Dose: 2 mg Lorazepam (Lorazepam 0.5 Mg Tablet) 0.5 mg PO Q8H PRN PRN Reason: Anxiety Last Admin: 02/09/25 20:57 Dose: 0.5 mg Magnesium Hydroxide (Milk Of Magnesia 30 Ml Oral.Susp) 30 ml PO DAILY PRN PRN Reason: Constipation Melatonin (Melatonin 3 Mg Tablet) 3 mg PO BEDTIME PRN PRN Reason: Insomnia Last Admin: 02/13/25 20:45 Dose: 3 mg Mirtazapine (Mirtazapine 30 Mg Tablet) 30 mg PO BEDTIME [facility] Last Admin: 02/13/25 20:46 Dose: 30 mg Multivitamins/Vitamin C (Multivitamin Tablet) 1 tab PO DAILY [facility] Last Admin: 02/14/25 08:34 Dose: 1 tab Nicotine (Nicotine 21 Mg Patch.Td24) 21 mg TRANSDERMA DAILY PRN PRN Reason: nicotine craving Nicotine Polacrilex (Nicotine Polacrilex 2 Mg Gum) 2 mg BUCCAL Q2H PRN PRN Reason: Nicotine Cravings Olanzapine (Olanzapine 5 Mg Tablet) 5 mg PO BID PRN PRN Reason: agitation Spironolactone (Spironolactone 25 Mg Tablet) 25 mg PO DAILY [facility]; Protocol Last Admin: 02/14/25 08:34 Dose: 25 mg Thiamine HCl (Thiamine Hcl 100 Mg Tablet) 100 mg PO DAILY [facility] Last Admin: 02/14/25 08:37 Dose: 100 mg Trazodone HCl (Trazodone Hcl 50 Mg Tablet) 50 mg PO BEDTIME MRX1 PRN PRN Reason: Insomnia Trazodone HCl (Trazodone Hcl 50 Mg Tablet) 50 mg PO BEDTIME [facility] Last Admin: 02/13/25 20:46 Dose: 50 mg Warfarin Sodium (Warfarin Sodium 2.5 Mg Tablet) 2.5 mg PO DAILY@1800 [facility] Last Admin: 02/13/25 18:27 Dose: 2.5 mg Allergies Allergies Allergy/AdvReac Type Severity Reaction Status Date / Time No Known Allergies Allergy Verified 02/04/25 17:54 Assessment & Plan Assessment & Plan (1) MDD (major depressive disorder), recurrent episode, severe: Status: Acute Code(s): F33.2 - Major depressive disorder, recurrent severe without psychotic features (2) HTN (hypertension): Status: Acute Code(s): I10 - Essential (primary) hypertension (3) Atrial fibrillation: Status: Acute Code(s): I48.91 - Unspecified atrial fibrillation (4) HLD (hyperlipidemia): Status: Acute Code(s): E78.5 - Hyperlipidemia, unspecified (5) Chronic post-traumatic stress disorder (PTSD): Status: Acute Code(s): F43.12 - Post-traumatic stress disorder, chronic Plan Ms. Trevino is a 74 year-old woman with hx of MDD, PTSD, alcohol use disorder in remission who was brought via EMS to [facility] after told friend that she was having suicidal ideation with multiple plans including electrocution, OD on meds or cut her wrist. Pt was voluntary for psychiatric treatment and had reported prior psychiatric admissions to be helpful. She continues to present as hopeless, helpless, suicidal ideation although denies intent to end her life due to spiritual believes and concern of how it would impact her close friend Nimco. We discussed risks, benefits and alternative treatment options. During ED visit at [facility] [place], pt found to be bradycardic, diltiazam was discontinued, seen by cardiology did not recommend pacemaker placement and she is due OP for a watchman procedure. However, during this hospitalist, will continue to monitor s/s of bradycardia and if noted cardiology should be consulted promptly. She is currently on clonidine although less impact on HR continue to monitor BP. She is also on aricept which does cause bradycardia. Currently, her HR has been >60. PLAN 02/06 continue tx. hopeless, helpless. may consider adding venlafaxine to remeron and abilify. 02/09 increase abilify 10mg po daily. continue remeron 30mg po qhs. 02/10 family meeting to discuss tx and results of cognitive assessments. pt seemed uplifted by idea of going to [facility]. She denied SI/HI. She reported her mood is much better today. 02/11 continue current medications. 02/12 continue tx. denies SI/HI. 02/13 taking medications, no side effects. denies SI/HI. 02/14:Continue current regimen and plans Reason for continued inpatient stay Substantial Risk for: harm to self and med/psych decompensation Time Spent With Patient Time: Total time managing care of this patient today ____ minutes.
[2025-02-14 14:12] VITALS: BP 145/65; PULSE 77
[2025-02-14 20:00] VITALS: BP 130/62; PULSE 76; RESP 18; TEMP 36.4; O2SAT 95
[2025-02-14 20:50] VITALS: BP 130/62
[2025-02-14 20:51] VITALS: BP 130/62
[2025-02-15 11:17] VITALS: BP 174/78; PULSE 81; RESP 18; TEMP 36.3; O2SAT 98
[2025-02-15 12:10] VITALS: BP 107/53; PULSE 92
--- NOTE | 2025-02-15 12:55 | P.PNPSI_ITS ---
Subjective Subjective Date of Service: 02/15/25 Reason For Visit: Orly Mdd w/o Psychosis;PTSD Subjective Notes: Conditional Voluntary Interim History: Patient was seen and discussed in rounds today. Records and plans were reviewed. She is pleasant and cooperative but continues to be guarded, irritable and flat at times. She did not sleep well last night. No SI. Nighttime medications reviewed and I will increase trazodone to 100 mg. No other changes were made Review of Systems Review of Systems Sleep Yes all other systems are reviewed and are negative Mental Status Exam Mental Status Exam Narrative: Appearance: wearing hospital gown, fair hygiene, in NAD Behavior: guarded, superficially cooperative Psychomotor: mild resting/action tremor on right hand more than left. Speech: clear, normal rate/rhythm/volume, spontaneous TP: linear TC: feeling hopeless, yet asked to go to hospital and seeking help Mood: depressed Affect: constricted SI: suicidal thoughts, denies intent on basis of islam concern and affecting close friend. HI: none VH/AH: none Delusions: none Insight/judgment: fair x 2. memory/cog: alert, oriented x 3. MOCA 20/30, ACL 3.6 Diagnostics Vital Signs (24Hr): Vital Signs - 24 hr 02/14/25 14:12 02/14/25 20:00 02/14/25 20:50 Temperature 97.5 F Pulse Rate 77 76 Respiratory Rate 18 Blood Pressure 145/65 H 130/62 130/62 Pulse Oximetry 95 Oxygen Delivery Method Room Air 02/14/25 20:51 02/15/25 11:17 02/15/25 12:10 Temperature 97.4 F Pulse Rate 81 92 Respiratory Rate 18 Blood Pressure 130/62 174/78 H 107/53 L Pulse Oximetry 98 Oxygen Delivery Method Room Air BMI result Body Mass Index 21.0 Labs 02/05/25 07:21 Labs: Laboratory Results - last 48 hr 02/14/25 02/14/25 02/14/25 08:28 08:28 08:28 PT 32.8 H 33.5 H INR 2.8 H 2.8 H Medications Medications Current Medications Acetaminophen (Acetaminophen 325 Mg Tablet) 650 mg PO Q6H PRN PRN Reason: Headache/Pain, Scale 1-10 Last Admin: 02/15/25 12:25 Dose: 650 mg Al Hydroxide/Mg Hydroxide (Magnesium Hydrox/Alum Hydrox 30 Ml Oral.Susp) 30 ml PO Q6H PRN PRN Reason: Heartburn/Nausea Aripiprazole (Aripiprazole 10 Mg Tablet) 10 mg PO DAILY [facility] Last Admin: 02/15/25 11:19 Dose: 10 mg Buspirone HCl (Buspirone Hcl 5 Mg Tablet) 15 mg PO BID [facility] Last Admin: 02/15/25 11:19 Dose: 15 mg Clonidine HCl (Clonidine Hcl 0.1 Mg Tablet) 0.1 mg PO BID [facility]; Protocol Last Admin: 02/15/25 11:20 Dose: 0.1 mg Cyanocobalamin (Cyanocobalamin (Vitamin B-12) 100 Mcg Tablet) 100 mcg PO DAILY [facility] Last Admin: 02/15/25 11:21 Dose: 100 mcg Donepezil HCl (Donepezil Hcl 10 Mg Tablet) 10 mg PO DAILY [facility] Last Admin: 02/15/25 11:21 Dose: 10 mg Folic Acid (Folic Acid 1 Mg Tablet) 1 mg PO DAILY [facility] Last Admin: 02/15/25 11:20 Dose: 1 mg Hydralazine HCl (Hydralazine Hcl 25 Mg Tablet) 25 mg PO TID [facility]; Protocol Last Admin: 02/15/25 11:19 Dose: 25 mg Hydroxyzine HCl (Hydroxyzine Hcl 25 Mg Tablet) 25 mg PO Q6H PRN PRN Reason: mild anxiety Last Admin: 02/06/25 12:13 Dose: 25 mg Loperamide HCl (Loperamide Hcl 2 Mg Capsule) 2 mg PO Q4H PRN PRN Reason: loose stools Last Admin: 02/09/25 14:39 Dose: 2 mg Lorazepam (Lorazepam 0.5 Mg Tablet) 0.5 mg PO Q8H PRN PRN Reason: Anxiety Last Admin: 02/15/25 03:51 Dose: 0.5 mg Magnesium Hydroxide (Milk Of Magnesia 30 Ml Oral.Susp) 30 ml PO DAILY PRN PRN Reason: Constipation Melatonin (Melatonin 3 Mg Tablet) 3 mg PO BEDTIME PRN PRN Reason: Insomnia Last Admin: 02/14/25 20:55 Dose: 3 mg Mirtazapine (Mirtazapine 30 Mg Tablet) 30 mg PO BEDTIME [facility] Last Admin: 02/14/25 20:52 Dose: 30 mg Multivitamins/Vitamin C (Multivitamin Tablet) 1 tab PO DAILY [facility] Last Admin: 02/15/25 11:20 Dose: 1 tab Nicotine (Nicotine 21 Mg Patch.Td24) 21 mg TRANSDERMA DAILY PRN PRN Reason: nicotine craving Nicotine Polacrilex (Nicotine Polacrilex 2 Mg Gum) 2 mg BUCCAL Q2H PRN PRN Reason: Nicotine Cravings Olanzapine (Olanzapine 5 Mg Tablet) 5 mg PO BID PRN PRN Reason: agitation Spironolactone (Spironolactone 25 Mg Tablet) 25 mg PO DAILY [facility]; Protocol Last Admin: 02/15/25 11:21 Dose: 25 mg Thiamine HCl (Thiamine Hcl 100 Mg Tablet) 100 mg PO DAILY [facility] Last Admin: 02/15/25 11:20 Dose: 100 mg Trazodone HCl (Trazodone Hcl 50 Mg Tablet) 50 mg PO BEDTIME MRX1 PRN PRN Reason: Insomnia Trazodone HCl (Trazodone Hcl 50 Mg Tablet) 50 mg PO BEDTIME [facility] Last Admin: 02/14/25 20:52 Dose: 50 mg Warfarin Sodium (Warfarin Sodium 2.5 Mg Tablet) 2.5 mg PO DAILY@1800 [facility] Last Admin: 02/14/25 17:41 Dose: 2.5 mg Allergies Allergies Allergy/AdvReac Type Severity Reaction Status Date / Time No Known Allergies Allergy Verified 02/04/25 17:54 Assessment & Plan Assessment & Plan (1) MDD (major depressive disorder), recurrent episode, severe: Status: Acute Code(s): F33.2 - Major depressive disorder, recurrent severe without psychotic features (2) HTN (hypertension): Status: Acute Code(s): I10 - Essential (primary) hypertension (3) Atrial fibrillation: Status: Acute Code(s): I48.91 - Unspecified atrial fibrillation (4) HLD (hyperlipidemia): Status: Acute Code(s): E78.5 - Hyperlipidemia, unspecified (5) Chronic post-traumatic stress disorder (PTSD): Status: Acute Code(s): F43.12 - Post-traumatic stress disorder, chronic Plan Ms. Trevino is a 74 year-old woman with hx of MDD, PTSD, alcohol use disorder in remission who was brought via EMS to [facility] after told friend that she was having suicidal ideation with multiple plans including electrocution, OD on meds or cut her wrist. Pt was voluntary for psychiatric treatment and had reported prior psychiatric admissions to be helpful. She continues to present as hopeless, helpless, suicidal ideation although denies intent to end her life due to spiritual believes and concern of how it would impact her close friend Nimco. We discussed risks, benefits and alternative treatment options. During ED visit at [facility], pt found to be bradycardic, diltiazam was discontinued, seen by cardiology did not recommend pacemaker placement and she is due OP for a watchman procedure. However, during this hospitalist, will continue to monitor s/s of bradycardia and if noted cardiology should be consulted promptly. She is currently on clonidine although less impact on HR continue to monitor BP. She is also on aricept which does cause bradycardia. Currently, her HR has been >60. PLAN 02/06 continue tx. hopeless, helpless. may consider adding venlafaxine to remeron and abilify. 02/09 increase abilify 10mg po daily. continue remeron 30mg po qhs. 02/10 family meeting to discuss tx and results of cognitive assessments. pt seemed uplifted by idea of going to [facility]. She denied SI/HI. She reported her mood is much better today. 02/11 continue current medications. 02/12 continue tx. denies SI/HI. 02/13 taking medications, no side effects. denies SI/HI. 02/14:Continue current regimen and plans 02/15:Continue current regimen and plans. Increase trazodone to 100 mg Patient educated on: medication risk/benefits Reason for continued inpatient stay Substantial Risk for: inability to function Time Spent With Patient Time: Total time managing care of this patient today ____ minutes.
[2025-02-15 13:00] LABS: INTERNATIONAL NORM RATIO 2.6 (0.9-1.1); Prothrombin Time 31.0 SEC (11.2-13.5)
[2025-02-15 13:01] LABS: INTERNATIONAL NORM RATIO 2.6 (0.9-1.1); Prothrombin Time 31.2 SEC (11.2-13.5)
[2025-02-15 14:34] VITALS: BP 121/57; PULSE 72
[2025-02-15 20:00] VITALS: BP 136/65; PULSE 68; RESP 18; TEMP 36.4; O2SAT 96
[2025-02-16 07:48] LABS: INTERNATIONAL NORM RATIO 2.2 (0.9-1.1); Prothrombin Time 26.6 SEC (11.2-13.5)
[2025-02-16 08:00] VITALS: BP 154/67; PULSE 61; RESP 18; TEMP 36.9; O2SAT 96
[2025-02-16 08:52] VITALS: BP 154/67
[2025-02-16 08:53] VITALS: BP 154/67
--- NOTE | 2025-02-16 10:02 | P.PNPSI_ITS ---
Subjective Subjective Date of Service: 02/16/25 Reason For Visit: Orly Mdd w/o Psychosis;PTSD Subjective Notes: Conditional Voluntary Interim History: Pt slept through the night. Pt reports feeling anxious and overwhelmed today because [facility] not [facility] yet and seemed they are coming instead tomorrow. No SI/HI. She has been visible on the unit, social with select peers. tolerating medications. Mental Status Exam Mental Status Exam Narrative: Appearance: wearing hospital gown, fair hygiene, in NAD Behavior: guarded, superficially cooperative Psychomotor: mild resting/action tremor on right hand more than left. Speech: clear, normal rate/rhythm/volume, spontaneous TP: linear TC: feeling hopeless, yet asked to go to hospital and seeking help Mood: depressed Affect: constricted SI: suicidal thoughts, denies intent on basis of gnosticist concern and affecting close friend. HI: none VH/AH: none Delusions: none Insight/judgment: fair x 2. memory/cog: alert, oriented x 3. MOCA 20/30, ACL 3.6 Diagnostics Vital Signs (24Hr): Vital Signs - 24 hr 02/15/25 11:17 02/15/25 12:10 02/15/25 14:34 Temperature 97.4 F Pulse Rate 81 92 72 Respiratory Rate 18 Blood Pressure 174/78 H 107/53 L 121/57 L Pulse Oximetry 98 Oxygen Delivery Method Room Air 02/15/25 20:00 02/16/25 08:00 02/16/25 08:52 Temperature 97.5 F 98.4 F Pulse Rate 68 61 Respiratory Rate 18 18 Blood Pressure 136/65 154/67 H 154/67 H Pulse Oximetry 96 96 Oxygen Delivery Method Room Air Room Air 02/16/25 08:52 02/16/25 08:53 Temperature Pulse Rate Respiratory Rate Blood Pressure 154/67 H 154/67 H Pulse Oximetry Oxygen Delivery Method BMI result Body Mass Index 21.0 Labs 02/05/25 07:21 Labs: Laboratory Results - last 48 hr 02/15/25 02/15/25 02/15/25 12:47 12:47 12:47 PT 31.2 H 31.0 H INR 2.6 H 2.6 H 02/16/25 07:08 PT 26.6 H INR 2.2 H Medications Medications Current Medications Acetaminophen (Acetaminophen 325 Mg Tablet) 650 mg PO Q6H PRN PRN Reason: Headache/Pain, Scale 1-10 Last Admin: 02/15/25 21:09 Dose: 650 mg Al Hydroxide/Mg Hydroxide (Magnesium Hydrox/Alum Hydrox 30 Ml Oral.Susp) 30 ml PO Q6H PRN PRN Reason: Heartburn/Nausea Aripiprazole (Aripiprazole 10 Mg Tablet) 10 mg PO DAILY [facility] Last Admin: 02/16/25 08:51 Dose: 10 mg Buspirone HCl (Buspirone Hcl 5 Mg Tablet) 15 mg PO BID [facility] Last Admin: 02/16/25 08:52 Dose: 15 mg Clonidine HCl (Clonidine Hcl 0.1 Mg Tablet) 0.1 mg PO BID [facility]; Protocol Last Admin: 02/16/25 08:52 Dose: 0.1 mg Cyanocobalamin (Cyanocobalamin (Vitamin B-12) 100 Mcg Tablet) 100 mcg PO DAILY [facility] Last Admin: 02/16/25 08:52 Dose: 100 mcg Donepezil HCl (Donepezil Hcl 10 Mg Tablet) 10 mg PO DAILY [facility] Last Admin: 02/16/25 08:51 Dose: 10 mg Folic Acid (Folic Acid 1 Mg Tablet) 1 mg PO DAILY [facility] Last Admin: 02/16/25 08:52 Dose: 1 mg Hydralazine HCl (Hydralazine Hcl 25 Mg Tablet) 25 mg PO TID [facility]; Protocol Last Admin: 02/16/25 08:53 Dose: 25 mg Hydroxyzine HCl (Hydroxyzine Hcl 25 Mg Tablet) 25 mg PO Q6H PRN PRN Reason: mild anxiety Last Admin: 02/06/25 12:13 Dose: 25 mg Loperamide HCl (Loperamide Hcl 2 Mg Capsule) 2 mg PO Q4H PRN PRN Reason: loose stools Last Admin: 02/09/25 14:39 Dose: 2 mg Lorazepam (Lorazepam 0.5 Mg Tablet) 0.5 mg PO Q8H PRN PRN Reason: Anxiety Last Admin: 02/15/25 03:51 Dose: 0.5 mg Magnesium Hydroxide (Milk Of Magnesia 30 Ml Oral.Susp) 30 ml PO DAILY PRN PRN Reason: Constipation Melatonin (Melatonin 3 Mg Tablet) 3 mg PO BEDTIME PRN PRN Reason: Insomnia Last Admin: 02/15/25 21:10 Dose: 3 mg Mirtazapine (Mirtazapine 30 Mg Tablet) 30 mg PO BEDTIME [facility] Last Admin: 02/15/25 21:10 Dose: 30 mg Multivitamins/Vitamin C (Multivitamin Tablet) 1 tab PO DAILY [facility] Last Admin: 02/16/25 08:51 Dose: 1 tab Nicotine (Nicotine 21 Mg Patch.Td24) 21 mg TRANSDERMA DAILY PRN PRN Reason: nicotine craving Nicotine Polacrilex (Nicotine Polacrilex 2 Mg Gum) 2 mg BUCCAL Q2H PRN PRN Reason: Nicotine Cravings Olanzapine (Olanzapine 5 Mg Tablet) 5 mg PO BID PRN PRN Reason: agitation Spironolactone (Spironolactone 25 Mg Tablet) 25 mg PO DAILY [facility]; Protocol Last Admin: 02/16/25 08:52 Dose: 25 mg Thiamine HCl (Thiamine Hcl 100 Mg Tablet) 100 mg PO DAILY [facility] Last Admin: 02/16/25 08:51 Dose: 100 mg Trazodone HCl (Trazodone Hcl 50 Mg Tablet) 50 mg PO BEDTIME [facility] Last Admin: 02/15/25 21:13 Dose: 50 mg Trazodone HCl (Trazodone Hcl 100 Mg Tablet) 100 mg PO BEDTIME MRX1 PRN PRN Reason: Insomnia Warfarin Sodium (Warfarin Sodium 2.5 Mg Tablet) 2.5 mg PO DAILY@1800 [facility] Last Admin: 02/15/25 17:35 Dose: 2.5 mg Allergies Allergies Allergy/AdvReac Type Severity Reaction Status Date / Time No Known Allergies Allergy Verified 02/04/25 17:54 Assessment & Plan Assessment & Plan (1) MDD (major depressive disorder), recurrent episode, severe: Status: Acute Code(s): F33.2 - Major depressive disorder, recurrent severe without psychotic features (2) HTN (hypertension): Status: Acute Code(s): I10 - Essential (primary) hypertension (3) Atrial fibrillation: Status: Acute Code(s): I48.91 - Unspecified atrial fibrillation (4) HLD (hyperlipidemia): Status: Acute Code(s): E78.5 - Hyperlipidemia, unspecified (5) Chronic post-traumatic stress disorder (PTSD): Status: Acute Code(s): F43.12 - Post-traumatic stress disorder, chronic Plan Ms. Trevino is a 74 year-old woman with hx of MDD, PTSD, alcohol use disorder in remission who was brought via EMS to [facility] after told friend that she was having suicidal ideation with multiple plans including electrocution, OD on meds or cut her wrist. Pt was voluntary for psychiatric treatment and had reported prior psychiatric admissions to be helpful. She continues to present as hopeless, helpless, suicidal ideation although denies intent to end her life due to spiritual believes and concern of how it would impact her close friend Nimco. We discussed risks, benefits and alternative treatment options. During ED visit at [facility], pt found to be bradycardic, diltiazam was discontinued, seen by cardiology did not recommend pacemaker placement and she is due OP for a watchman procedure. However, during this hospitalist, will continue to monitor s/s of bradycardia and if noted cardiology should be consulted promptly. She is currently on clonidine although less impact on HR continue to monitor BP. She is also on aricept which does cause bradycardia. Currently, her HR has been >60. PLAN 02/06 continue tx. hopeless, helpless. may consider adding venlafaxine to remeron and abilify. 02/09 increase abilify 10mg po daily. continue remeron 30mg po qhs. 02/10 family meeting to discuss tx and results of cognitive assessments. pt seemed [facility] She denied SI/HI. She reported her mood is much better today. 02/11 continue current medications. 02/12 continue tx. denies SI/HI. 02/13 taking medications, no side effects. denies SI/HI. 02/14:Continue current regimen and plans 02/15:Continue current regimen and plans. Increase trazodone to 100 mg 02/16 continue tx. plan to meet with [facility]. less depressed. No SI/HI. more visible. Reason for continued inpatient stay Substantial Risk for: inability to function Time Spent With Patient Time: Total time managing care of this patient today ____ minutes.
[2025-02-16 15:03] VITALS: BP 150/70
[2025-02-16 20:00] VITALS: BP 130/71; PULSE 91; RESP 16; TEMP 36; O2SAT 95
[2025-02-17 08:00] VITALS: BP 121/61; PULSE 75; RESP 16; TEMP 36.2; O2SAT 94
[2025-02-17 08:30] LABS: INTERNATIONAL NORM RATIO 2.0 (0.9-1.1); Prothrombin Time 23.6 SEC (11.2-13.5)
--- NOTE | 2025-02-17 09:27 | P.PNPSI_ITS ---
Subjective Subjective Date of Service: 02/17/25 Reason For Visit: Seveere Mdd w/o Psychosis;PTSD Subjective Notes: Conditional Voluntary Interim History: Pt slept through the night. Pt reports feeling anxious as she is awaiting meeting with [facility]. No SI/HI. She has been visible on the unit, social with select peers. taking medications. No behavioral concerns. Medication Compliance: Yes Review of Systems Review of Systems Sleep Yes all other systems are reviewed and are negative Mental Status Exam Mental Status Exam Narrative: Appearance: wearing hospital gown, fair hygiene, in NAD Behavior: guarded, superficially cooperative Psychomotor: mild resting/action tremor on right hand more than left. Speech: clear, normal rate/rhythm/volume, spontaneous TP: linear TC: feeling hopeless, yet asked to go to hospital and seeking help Mood: depressed Affect: constricted SI: suicidal thoughts, denies intent on basis of jewish concern and affecting close friend. HI: none VH/AH: none Delusions: none Insight/judgment: fair x 2. memory/cog: alert, oriented x 3. MOCA 20/30, ACL 3.6 Diagnostics Vital Signs (24Hr): Vital Signs - 24 hr 02/16/25 15:03 02/16/25 20:00 02/17/25 08:00 Temperature 96.8 F 97.2 F Pulse Rate 91 75 Respiratory Rate 16 16 Blood Pressure 150/70 H 130/71 121/61 Pulse Oximetry 95 94 Oxygen Delivery Method Room Air Room Air BMI result Body Mass Index 21.0 Labs 02/05/25 07:21 Labs: Laboratory Results - last 48 hr 02/15/25 02/15/25 02/15/25 12:47 12:47 12:47 PT 31.2 H 31.0 H INR 2.6 H 2.6 H 02/16/25 02/17/25 07:08 07:30 PT 26.6 H 23.6 H INR 2.2 H 2.0 H Medications Medications Current Medications Acetaminophen (Acetaminophen 325 Mg Tablet) 650 mg PO Q6H PRN PRN Reason: Headache/Pain, Scale 1-10 Last Admin: 02/16/25 18:35 Dose: 650 mg Al Hydroxide/Mg Hydroxide (Magnesium Hydrox/Alum Hydrox 30 Ml Oral.Susp) 30 ml PO Q6H PRN PRN Reason: Heartburn/Nausea Aripiprazole (Aripiprazole 10 Mg Tablet) 10 mg PO DAILY [facility] Last Admin: 02/17/25 09:19 Dose: 10 mg Buspirone HCl (Buspirone Hcl 5 Mg Tablet) 15 mg PO BID [facility] Last Admin: 02/17/25 09:20 Dose: 15 mg Clonidine HCl (Clonidine Hcl 0.1 Mg Tablet) 0.1 mg PO BID [facility]; Protocol Last Admin: 02/17/25 09:19 Dose: 0.1 mg Cyanocobalamin (Cyanocobalamin (Vitamin B-12) 100 Mcg Tablet) 100 mcg PO DAILY [facility] Last Admin: 02/17/25 09:19 Dose: 100 mcg Donepezil HCl (Donepezil Hcl 10 Mg Tablet) 10 mg PO DAILY [facility] Last Admin: 02/17/25 09:20 Dose: 10 mg Folic Acid (Folic Acid 1 Mg Tablet) 1 mg PO DAILY [facility] Last Admin: 02/17/25 09:19 Dose: 1 mg Hydralazine HCl (Hydralazine Hcl 25 Mg Tablet) 25 mg PO TID [facility]; Protocol Last Admin: 02/17/25 09:20 Dose: 25 mg Hydroxyzine HCl (Hydroxyzine Hcl 25 Mg Tablet) 25 mg PO Q6H PRN PRN Reason: mild anxiety Last Admin: 02/17/25 04:35 Dose: 25 mg Loperamide HCl (Loperamide Hcl 2 Mg Capsule) 2 mg PO Q4H PRN PRN Reason: loose stools Last Admin: 02/09/25 14:39 Dose: 2 mg Lorazepam (Lorazepam 0.5 Mg Tablet) 0.5 mg PO Q8H PRN PRN Reason: Anxiety Last Admin: 02/15/25 03:51 Dose: 0.5 mg Magnesium Hydroxide (Milk Of Magnesia 30 Ml Oral.Susp) 30 ml PO DAILY PRN PRN Reason: Constipation Melatonin (Melatonin 3 Mg Tablet) 3 mg PO BEDTIME PRN PRN Reason: Insomnia Last Admin: 02/16/25 21:45 Dose: 3 mg Mirtazapine (Mirtazapine 30 Mg Tablet) 30 mg PO BEDTIME [facility] Last Admin: 02/16/25 20:53 Dose: 30 mg Multivitamins/Vitamin C (Multivitamin Tablet) 1 tab PO DAILY [facility] Last Admin: 02/17/25 09:20 Dose: 1 tab Nicotine (Nicotine 21 Mg Patch.Td24) 21 mg TRANSDERMA DAILY PRN PRN Reason: nicotine craving Nicotine Polacrilex (Nicotine Polacrilex 2 Mg Gum) 2 mg BUCCAL Q2H PRN PRN Reason: Nicotine Cravings Olanzapine (Olanzapine 5 Mg Tablet) 5 mg PO BID PRN PRN Reason: agitation Spironolactone (Spironolactone 25 Mg Tablet) 25 mg PO DAILY [facility]; Protocol Last Admin: 02/17/25 09:20 Dose: 25 mg Thiamine HCl (Thiamine Hcl 100 Mg Tablet) 100 mg PO DAILY [facility] Last Admin: 02/17/25 09:19 Dose: 100 mg Trazodone HCl (Trazodone Hcl 50 Mg Tablet) 50 mg PO BEDTIME [facility] Last Admin: 02/16/25 20:53 Dose: 50 mg Trazodone HCl (Trazodone Hcl 100 Mg Tablet) 100 mg PO BEDTIME MRX1 PRN PRN Reason: Insomnia Warfarin Sodium (Warfarin Sodium 2.5 Mg Tablet) 2.5 mg PO DAILY@1800 [facility] Last Admin: 02/16/25 17:55 Dose: 2.5 mg Allergies Allergies Allergy/AdvReac Type Severity Reaction Status Date / Time No Known Allergies Allergy Verified 02/04/25 17:54 Assessment & Plan Assessment & Plan (1) MDD (major depressive disorder), recurrent episode, severe: Status: Acute Code(s): F33.2 - Major depressive disorder, recurrent severe without psychotic features (2) HTN (hypertension): Status: Acute Code(s): I10 - Essential (primary) hypertension (3) Atrial fibrillation: Status: Acute Code(s): I48.91 - Unspecified atrial fibrillation (4) HLD (hyperlipidemia): Status: Acute Code(s): E78.5 - Hyperlipidemia, unspecified (5) Chronic post-traumatic stress disorder (PTSD): Status: Acute Code(s): F43.12 - Post-traumatic stress disorder, chronic Plan Ms. Trevino is a 74 year-old woman with hx of MDD, PTSD, alcohol use disorder in remission who was brought via EMS to [facility] after told friend that she was having suicidal ideation with multiple plans including electrocution, OD on meds or cut her wrist. Pt was voluntary for psychiatric treatment and had reported prior psychiatric admissions to be helpful. She continues to present as hopeless, helpless, suicidal ideation although denies intent to end her life due to spiritual believes and concern of how it would impact her close friend Nimco. We discussed risks, benefits and alternative treatment options. During ED visit at [facility], pt found to be bradycardic, diltiazam was discontinued, seen by cardiology did not recommend pacemaker placement and she is due OP for a watchman procedure. However, during this hospitalist, will continue to monitor s/s of bradycardia and if noted cardiology should be consulted promptly. She is currently on clonidine although less impact on HR continue to monitor BP. She is also on aricept which does cause bradycardia. Currently, her HR has been >60. PLAN 02/06 continue tx. hopeless, helpless. may consider adding venlafaxine to remeron and abilify. 02/09 increase abilify 10mg po daily. continue remeron 30mg po qhs. 02/10 family meeting to discuss tx and results of cognitive assessments. pt seemed uplifted by idea of going to [facility]. She denied SI/HI. She reported her mood is much better today. 02/11 continue current medications. 02/12 continue tx. denies SI/HI. 02/13 taking medications, no side effects. denies SI/HI. 02/14:Continue current regimen and plans 02/15:Continue current regimen and plans. Increase trazodone to 100 mg 02/16 continue tx. plan to meet with [facility]. less depressed. No SI/HI. more visible. 02/17 continue tx. plan to dc 02/20 Reason for continued inpatient stay Substantial Risk for: inability to function Time Spent With Patient Time: Total time managing care of this patient today ____ minutes.
[2025-02-17 14:19] VITALS: BP 125/57; PULSE 67
--- NOTE | 2025-02-17 17:42 | PC.NURSE ---
Patient pleasant and cooperative, compliant with medication. C/o headache in the morning, offered PRN pain medication but patient declined stating maybe later , did ask for the Tylenol and was medicated for headache with good effect. Patient seen in the common area throughout the day interacting /socializing with peers.
[2025-02-17 20:00] VITALS: BP 127/59; PULSE 67; RESP 16; TEMP 36.6; O2SAT 96
[2025-02-18] VITALS (7 sets, daily range): BP systolic 122–139; BP diastolic 58–63; PULSE 66–74; RESP 16; TEMP 36.3–36.4; O2SAT 94–95
[2025-02-18 08:43] LABS: INTERNATIONAL NORM RATIO 1.8 (0.9-1.1); Prothrombin Time 22.2 SEC (11.2-13.5)
--- NOTE | 2025-02-18 12:07 | P.PNPSI_ITS ---
Subjective Subjective Date of Service: 02/18/25 Reason For Visit: Seveeg[place] Mdd w/o Psychosis;PTSD Subjective Notes: Conditional Voluntary Interim History: Pt slept through the night. Pt reports feeling anxious as she is awaiting meeting with [facility]. No SI/HI. She has been visible on the unit, social with select peers. taking medications. No behavioral concerns. Review of Systems Review of Systems Sleep Yes all other systems are reviewed and are negative Mental Status Exam Mental Status Exam Narrative: Appearance: wearing hospital gown, fair hygiene, in NAD Behavior: guarded, superficially cooperative Psychomotor: mild resting/action tremor on right hand more than left. Speech: clear, normal rate/rhythm/volume, spontaneous TP: linear TC: feeling hopeless, yet asked to go to hospital and seeking help Mood: depressed Affect: constricted SI: suicidal thoughts, denies intent on basis of synagogue concern and affecting close friend. HI: none VH/AH: none Delusions: none Insight/judgment: fair x 2. memory/cog: alert, oriented x 3. MOCA 20/30, ACL 3.6 Diagnostics Vital Signs (24Hr): Vital Signs - 24 hr 02/17/25 14:19 02/17/25 20:00 02/18/25 10:36 Temperature 97.9 F 97.3 F Pulse Rate 67 67 66 Respiratory Rate 16 16 Blood Pressure 125/57 L 127/59 L 123/60 Pulse Oximetry 96 94 Oxygen Delivery Method Room Air Room Air 02/18/25 11:36 02/18/25 11:36 02/18/25 11:37 Temperature Pulse Rate Respiratory Rate Blood Pressure 123/60 123/60 123/60 Pulse Oximetry Oxygen Delivery Method BMI result Body Mass Index 21.0 Labs 02/05/25 07:21 Labs: Laboratory Results - last 48 hr 02/17/25 02/18/25 07:30 07:32 PT 23.6 H 22.2 H INR 2.0 H 1.8 H Medications Medications Current Medications Acetaminophen (Acetaminophen 325 Mg Tablet) 650 mg PO Q6H PRN PRN Reason: Headache/Pain, Scale 1-10 Last Admin: 02/18/25 11:36 Dose: 650 mg Al Hydroxide/Mg Hydroxide (Magnesium Hydrox/Alum Hydrox 30 Ml Oral.Susp) 30 ml PO Q6H PRN PRN Reason: Heartburn/Nausea Aripiprazole (Aripiprazole 10 Mg Tablet) 10 mg PO DAILY [facility] Last Admin: 02/18/25 11:36 Dose: 10 mg Buspirone HCl (Buspirone Hcl 5 Mg Tablet) 15 mg PO BID [facility] Last Admin: 02/18/25 11:35 Dose: 15 mg Clonidine HCl (Clonidine Hcl 0.1 Mg Tablet) 0.1 mg PO BID [facility]; Protocol Last Admin: 02/18/25 11:36 Dose: 0.1 mg Cyanocobalamin (Cyanocobalamin (Vitamin B-12) 100 Mcg Tablet) 100 mcg PO DAILY [facility] Last Admin: 02/18/25 11:37 Dose: 100 mcg Donepezil HCl (Donepezil Hcl 10 Mg Tablet) 10 mg PO DAILY [facility] Last Admin: 02/18/25 11:36 Dose: 10 mg Folic Acid (Folic Acid 1 Mg Tablet) 1 mg PO DAILY [facility] Last Admin: 02/18/25 11:37 Dose: 1 mg Hydralazine HCl (Hydralazine Hcl 25 Mg Tablet) 25 mg PO TID [facility]; Protocol Last Admin: 02/18/25 11:37 Dose: 25 mg Hydroxyzine HCl (Hydroxyzine Hcl 25 Mg Tablet) 25 mg PO Q6H PRN PRN Reason: mild anxiety Last Admin: 02/17/25 04:35 Dose: 25 mg Loperamide HCl (Loperamide Hcl 2 Mg Capsule) 2 mg PO Q4H PRN PRN Reason: loose stools Last Admin: 02/09/25 14:39 Dose: 2 mg Lorazepam (Lorazepam 0.5 Mg Tablet) 0.5 mg PO Q8H PRN PRN Reason: Anxiety Last Admin: 02/15/25 03:51 Dose: 0.5 mg Magnesium Hydroxide (Milk Of Magnesia 30 Ml Oral.Susp) 30 ml PO DAILY PRN PRN Reason: Constipation Melatonin (Melatonin 3 Mg Tablet) 3 mg PO BEDTIME PRN PRN Reason: Insomnia Last Admin: 02/17/25 21:50 Dose: 3 mg Mirtazapine (Mirtazapine 30 Mg Tablet) 30 mg PO BEDTIME [facility] Last Admin: 02/17/25 21:50 Dose: 30 mg Multivitamins/Vitamin C (Multivitamin Tablet) 1 tab PO DAILY [facility] Last Admin: 02/18/25 11:37 Dose: 1 tab Nicotine (Nicotine 21 Mg Patch.Td24) 21 mg TRANSDERMA DAILY PRN PRN Reason: nicotine craving Nicotine Polacrilex (Nicotine Polacrilex 2 Mg Gum) 2 mg BUCCAL Q2H PRN PRN Reason: Nicotine Cravings Olanzapine (Olanzapine 5 Mg Tablet) 5 mg PO BID PRN PRN Reason: agitation Spironolactone (Spironolactone 25 Mg Tablet) 25 mg PO DAILY [facility]; Protocol Last Admin: 02/18/25 11:36 Dose: 25 mg Thiamine HCl (Thiamine Hcl 100 Mg Tablet) 100 mg PO DAILY [facility] Last Admin: 02/18/25 11:36 Dose: 100 mg Trazodone HCl (Trazodone Hcl 50 Mg Tablet) 50 mg PO BEDTIME [facility] Last Admin: 02/17/25 21:50 Dose: 50 mg Trazodone HCl (Trazodone Hcl 100 Mg Tablet) 100 mg PO BEDTIME MRX1 PRN PRN Reason: Insomnia Warfarin Sodium (Warfarin Sodium 2.5 Mg Tablet) 2.5 mg PO DAILY@1800 [facility] Last Admin: 02/17/25 17:54 Dose: 2.5 mg Allergies Allergies Allergy/AdvReac Type Severity Reaction Status Date / Time No Known Allergies Allergy Verified 02/04/25 17:54 Assessment & Plan Assessment & Plan (1) MDD (major depressive disorder), recurrent episode, severe: Status: Acute Code(s): F33.2 - Major depressive disorder, recurrent severe without psychotic features (2) HTN (hypertension): Status: Acute Code(s): I10 - Essential (primary) hypertension (3) Atrial fibrillation: Status: Acute Code(s): I48.91 - Unspecified atrial fibrillation (4) HLD (hyperlipidemia): Status: Acute Code(s): E78.5 - Hyperlipidemia, unspecified (5) Chronic post-traumatic stress disorder (PTSD): Status: Acute Code(s): F43.12 - Post-traumatic stress disorder, chronic Plan Ms. Trevino is a 74 year-old woman with hx of MDD, PTSD, alcohol use disorder in remission who was brought via EMS to [facility] after told friend that she was having suicidal ideation with multiple plans including electrocution, OD on meds or cut her wrist. Pt was voluntary for psychiatric treatment and had reported prior psychiatric admissions to be helpful. She continues to present as hopeless, helpless, suicidal ideation although denies intent to end her life due to spiritual believes and concern of how it would impact her close friend Nimco. We discussed risks, benefits and alternative treatment options. During ED visit at [facility], pt found to be bradycardic, diltiazam was discontinued, seen by cardiology did not recommend pacemaker placement and she is due OP for a watchman procedure. However, during this hospitalist, will continue to monitor s/s of bradycardia and if noted cardiology should be consulted promptly. She is currently on clonidine although less impact on HR continue to monitor BP. She is also on aricept which does cause bradycardia. Currently, her HR has been >60. PLAN 02/06 continue tx. hopeless, helpless. may consider adding venlafaxine to remeron and abilify. 02/09 increase abilify 10mg po daily. continue remeron 30mg po qhs. 02/10 family meeting to discuss tx and results of cognitive assessments. pt seemed uplifted by idea of going to [facility]. She denied SI/HI. She reported her mood is much better today. 02/11 continue current medications. 02/12 continue tx. denies SI/HI. 02/13 taking medications, no side effects. denies SI/HI. 02/14:Continue current regimen and plans 02/15:Continue current regimen and plans. Increase trazodone to 100 mg 02/16 continue tx. plan to meet with [facility]. less depressed. No SI/HI. more visible. 02/17 continue tx. plan to dc 02/20 02/18 continue tx. Reason for continued inpatient stay Substantial Risk for: inability to function Time Spent With Patient Time: Total time managing care of this patient today ____ minutes.
[2025-02-19 08:00] VITALS: BP 129/59; PULSE 65; RESP 17; TEMP 36.2; O2SAT 95
[2025-02-19 08:42] LABS: INTERNATIONAL NORM RATIO 1.8 (0.9-1.1); Prothrombin Time 21.5 SEC (11.2-13.5)
[2025-02-19 08:43] VITALS: BP 129/59
[2025-02-19 08:44] VITALS: BP 129/59
--- NOTE | 2025-02-19 08:51 | P.PNPSI_ITS ---
Subjective Subjective Date of Service: 02/19/25 Reason For Visit: Seve[place] Mdd w/o Psychosis;PTSD Subjective Notes: Conditional Voluntary Interim History: Pt slept through the night. Pt reports feeling anxious as she is awaiting meeting with [facility]. No SI/HI. She has been visible on the unit, social with select peers. taking medications. No behavioral concerns. Review of Systems Review of Systems Sleep Yes all other systems are reviewed and are negative Mental Status Exam Mental Status Exam Narrative: Appearance: wearing hospital gown, fair hygiene, in NAD Behavior: guarded, superficially cooperative Psychomotor: mild resting/action tremor on right hand more than left. Speech: clear, normal rate/rhythm/volume, spontaneous TP: linear TC: feeling hopeless, yet asked to go to hospital and seeking help Mood: depressed Affect: constricted SI: suicidal thoughts, denies intent on basis of latter day concern and affecting close friend. HI: none VH/AH: none Delusions: none Insight/judgment: fair x 2. memory/cog: alert, oriented x 3. MOCA 20/30, ACL 3.6 Diagnostics Vital Signs (24Hr): Vital Signs - 24 hr 02/18/25 10:36 02/18/25 11:36 02/18/25 11:36 Temperature 97.3 F Pulse Rate 66 Respiratory Rate 16 Blood Pressure 123/60 123/60 123/60 Pulse Oximetry 94 Oxygen Delivery Method Room Air 02/18/25 11:37 02/18/25 17:14 02/18/25 20:00 Temperature 97.5 F Pulse Rate 74 74 Respiratory Rate 16 Blood Pressure 123/60 122/58 L 135/63 Pulse Oximetry 95 Oxygen Delivery Method Room Air 02/18/25 22:08 02/18/25 22:09 02/19/25 08:43 Temperature Pulse Rate Respiratory Rate Blood Pressure 139/62 139/62 129/59 L Pulse Oximetry Oxygen Delivery Method 02/19/25 08:44 02/19/25 08:44 Temperature Pulse Rate Respiratory Rate Blood Pressure 129/59 L 129/59 L Pulse Oximetry Oxygen Delivery Method BMI result Body Mass Index 21.0 Labs 02/05/25 07:21 Labs: Laboratory Results - last 48 hr 02/18/25 02/19/25 07:32 07:38 PT 22.2 H 21.5 H INR 1.8 H 1.8 H Medications Medications Current Medications Acetaminophen (Acetaminophen 325 Mg Tablet) 650 mg PO Q6H PRN PRN Reason: Headache/Pain, Scale 1-10 Last Admin: 02/18/25 22:18 Dose: 650 mg Al Hydroxide/Mg Hydroxide (Magnesium Hydrox/Alum Hydrox 30 Ml Oral.Susp) 30 ml PO Q6H PRN PRN Reason: Heartburn/Nausea Aripiprazole (Aripiprazole 10 Mg Tablet) 10 mg PO DAILY [facility] Last Admin: 02/19/25 08:43 Dose: 10 mg Buspirone HCl (Buspirone Hcl 5 Mg Tablet) 15 mg PO BID [facility] Last Admin: 02/19/25 08:45 Dose: 15 mg Clonidine HCl (Clonidine Hcl 0.1 Mg Tablet) 0.1 mg PO BID [facility]; Protocol Last Admin: 02/19/25 08:44 Dose: 0.1 mg Cyanocobalamin (Cyanocobalamin (Vitamin B-12) 100 Mcg Tablet) 100 mcg PO DAILY [facility] Last Admin: 02/19/25 08:44 Dose: 100 mcg Donepezil HCl (Donepezil Hcl 10 Mg Tablet) 10 mg PO DAILY [facility] Last Admin: 02/19/25 08:43 Dose: 10 mg Folic Acid (Folic Acid 1 Mg Tablet) 1 mg PO DAILY [facility] Last Admin: 02/19/25 08:45 Dose: 1 mg Hydralazine HCl (Hydralazine Hcl 25 Mg Tablet) 25 mg PO TID [facility]; Protocol Last Admin: 02/19/25 08:43 Dose: 25 mg Hydroxyzine HCl (Hydroxyzine Hcl 25 Mg Tablet) 25 mg PO Q6H PRN PRN Reason: mild anxiety Last Admin: 02/17/25 04:35 Dose: 25 mg Loperamide HCl (Loperamide Hcl 2 Mg Capsule) 2 mg PO Q4H PRN PRN Reason: loose stools Last Admin: 02/09/25 14:39 Dose: 2 mg Lorazepam (Lorazepam 0.5 Mg Tablet) 0.5 mg PO Q8H PRN PRN Reason: Anxiety Last Admin: 02/19/25 04:14 Dose: 0.5 mg Magnesium Hydroxide (Milk Of Magnesia 30 Ml Oral.Susp) 30 ml PO DAILY PRN PRN Reason: Constipation Melatonin (Melatonin 3 Mg Tablet) 3 mg PO BEDTIME PRN PRN Reason: Insomnia Last Admin: 02/18/25 22:19 Dose: 3 mg Mirtazapine (Mirtazapine 30 Mg Tablet) 30 mg PO BEDTIME [facility] Last Admin: 02/18/25 22:08 Dose: 30 mg Multivitamins/Vitamin C (Multivitamin Tablet) 1 tab PO DAILY [facility] Last Admin: 02/19/25 08:43 Dose: 1 tab Nicotine (Nicotine 21 Mg Patch.Td24) 21 mg TRANSDERMA DAILY PRN PRN Reason: nicotine craving Nicotine Polacrilex (Nicotine Polacrilex 2 Mg Gum) 2 mg BUCCAL Q2H PRN PRN Reason: Nicotine Cravings Olanzapine (Olanzapine 5 Mg Tablet) 5 mg PO BID PRN PRN Reason: agitation Spironolactone (Spironolactone 25 Mg Tablet) 25 mg PO DAILY [facility]; Protocol Last Admin: 02/19/25 08:44 Dose: 25 mg Thiamine HCl (Thiamine Hcl 100 Mg Tablet) 100 mg PO DAILY [facility] Last Admin: 02/19/25 08:44 Dose: 100 mg Trazodone HCl (Trazodone Hcl 50 Mg Tablet) 50 mg PO BEDTIME [facility] Last Admin: 02/18/25 22:09 Dose: 50 mg Trazodone HCl (Trazodone Hcl 100 Mg Tablet) 100 mg PO BEDTIME MRX1 PRN PRN Reason: Insomnia Warfarin Sodium (Warfarin Sodium 2.5 Mg Tablet) 2.5 mg PO DAILY@1800 [facility] Allergies Allergies Allergy/AdvReac Type Severity Reaction Status Date / Time No Known Allergies Allergy Verified 02/04/25 17:54 Assessment & Plan Assessment & Plan (1) MDD (major depressive disorder), recurrent episode, severe: Status: Acute Code(s): F33.2 - Major depressive disorder, recurrent severe without psychotic features (2) HTN (hypertension): Status: Acute Code(s): I10 - Essential (primary) hypertension (3) Atrial fibrillation: Status: Acute Code(s): I48.91 - Unspecified atrial fibrillation (4) HLD (hyperlipidemia): Status: Acute Code(s): E78.5 - Hyperlipidemia, unspecified (5) Chronic post-traumatic stress disorder (PTSD): Status: Acute Code(s): F43.12 - Post-traumatic stress disorder, chronic Plan Ms. Trevino is a 74 year-old woman with hx of MDD, PTSD, alcohol use disorder in remission who was brought via EMS to [facility] after told friend that she was having suicidal ideation with multiple plans including electrocution, OD on meds or cut her wrist. Pt was voluntary for psychiatric treatment and had reported prior psychiatric admissions to be helpful. She continues to present as hopeless, helpless, suicidal ideation although denies intent to end her life due to spiritual believes and concern of how it would impact her close friend Nimco. We discussed risks, benefits and alternative treatment options. During [place] visit [place] [facility], pt found to be bradycardic, diltiazam was discontinued, seen by cardiology did not recommend pacemaker placement and she is due OP for a watchman procedure. However, during this hospitalist, will continue to monitor s/s of bradycardia and if noted cardiology should be consulted promptly. She is currently on clonidine although less impact on HR continue to monitor BP. She is also on aricept which does cause bradycardia. Currently, her HR has been >60. PLAN 02/06 continue tx. hopeless, helpless. may consider adding venlafaxine to remeron and abilify. 02/09 increase abilify 10mg po daily. continue remeron 30mg po qhs. 02/10 family meeting to discuss tx and results of cognitive assessments. pt seemed uplifted by idea of going to [facility]. She denied SI/HI. She reported her mood is much better today. 02/11 continue current medications. 02/12 continue tx. denies SI/HI. 02/13 taking medications, no side effects. denies SI/HI. 02/14:Continue current regimen and plans 02/15:Continue current regimen and plans. Increase trazodone to 100 mg 02/16 continue tx. plan to meet with [facility]. less depressed. No SI/HI. more visible. 02/17 continue tx. plan to dc 02/20 02/18 continue tx. 02/19 continue tx. Reason for continued inpatient stay Substantial Risk for: inability to function Time Spent With Patient Time: Total time managing care of this patient today ____ minutes.
[2025-02-19 13:50] VITALS: BMI 21.4
[2025-02-19 15:03] VITALS: BP 131/60
[2025-02-19] MEDS: Magnesium Hydrox/Alum Hydrox 30 ML ORAL.SUSP PO (18:38)
[2025-02-19 20:00] VITALS: BP 135/60; PULSE 68; RESP 16; TEMP 36.9; O2SAT 95
[2025-02-20 08:00] VITALS: BP 120/58; PULSE 58; RESP 16; TEMP 36.2; O2SAT 94
[2025-02-20 08:00] LABS: INTERNATIONAL NORM RATIO 1.8 (0.9-1.1); Prothrombin Time 22.1 SEC (11.2-13.5)
--- NOTE | 2025-02-20 08:30 | HO.PSYCHPN ---
Subjective Subjective Reason For Visit: Joseeivonne Mdd w/o Psychosis;PTSD Diagnostics Vital Signs (24Hr): Vital Signs - 24 hr 02/19/25 08:43 02/19/25 08:44 02/19/25 08:44 Temperature Pulse Rate Respiratory Rate Blood Pressure 129/59 L 129/59 L 129/59 L Pulse Oximetry Oxygen Delivery Method 02/19/25 15:03 02/19/25 20:00 Temperature 98.5 F Pulse Rate 68 Respiratory Rate 16 Blood Pressure 131/60 135/60 Pulse Oximetry 95 Oxygen Delivery Method Room Air BMI result Body Mass Index 21.4 Labs 02/05/25 07:21 Labs: Laboratory Results - last 48 hr 02/18/25 02/19/25 02/20/25 07:32 07:38 07:21 PT 22.2 H 21.5 H 22.1 H INR 1.8 H 1.8 H 1.8 H Medications Medications Current Medications Acetaminophen (Acetaminophen 325 Mg Tablet) 650 mg PO Q6H PRN PRN Reason: Headache/Pain, Scale 1-10 Last Admin: 02/19/25 17:01 Dose: 650 mg Al Hydroxide/Mg Hydroxide (Magnesium Hydrox/Alum Hydrox 30 Ml Oral.Susp) 30 ml PO Q6H PRN PRN Reason: Heartburn/Nausea Last Admin: 02/19/25 18:38 Dose: 30 ml Aripiprazole (Aripiprazole 10 Mg Tablet) 10 mg PO DAILY [facility] Last Admin: 02/19/25 08:43 Dose: 10 mg Buspirone HCl (Buspirone Hcl 5 Mg Tablet) 15 mg PO BID [facility] Last Admin: 02/19/25 21:59 Dose: 15 mg Clonidine HCl (Clonidine Hcl 0.1 Mg Tablet) 0.1 mg PO BID [facility]; Protocol Last Admin: 02/19/25 21:58 Dose: 0.1 mg Cyanocobalamin (Cyanocobalamin (Vitamin B-12) 100 Mcg Tablet) 100 mcg PO DAILY [facility] Last Admin: 02/19/25 08:44 Dose: 100 mcg Donepezil HCl (Donepezil Hcl 10 Mg Tablet) 10 mg PO DAILY [facility] Last Admin: 02/19/25 08:43 Dose: 10 mg Folic Acid (Folic Acid 1 Mg Tablet) 1 mg PO DAILY [facility] Last Admin: 02/19/25 08:45 Dose: 1 mg Hydralazine HCl (Hydralazine Hcl 25 Mg Tablet) 25 mg PO TID [facility]; Protocol Last Admin: 02/19/25 21:58 Dose: 25 mg Hydroxyzine HCl (Hydroxyzine Hcl 25 Mg Tablet) 25 mg PO Q6H PRN PRN Reason: mild anxiety Last Admin: 02/19/25 17:01 Dose: 25 mg Loperamide HCl (Loperamide Hcl 2 Mg Capsule) 2 mg PO Q4H PRN PRN Reason: loose stools Last Admin: 02/09/25 14:39 Dose: 2 mg Lorazepam (Lorazepam 0.5 Mg Tablet) 0.5 mg PO DAILY PRN PRN Reason: severe anxiety Magnesium Hydroxide (Milk Of Magnesia 30 Ml Oral.Susp) 30 ml PO DAILY PRN PRN Reason: Constipation Melatonin (Melatonin 3 Mg Tablet) 3 mg PO BEDTIME PRN PRN Reason: Insomnia Last Admin: 02/18/25 22:19 Dose: 3 mg Mirtazapine (Mirtazapine 30 Mg Tablet) 30 mg PO BEDTIME [facility] Last Admin: 02/19/25 21:58 Dose: 30 mg Multivitamins/Vitamin C (Multivitamin Tablet) 1 tab PO DAILY [facility] Last Admin: 02/19/25 08:43 Dose: 1 tab Nicotine (Nicotine 21 Mg Patch.Td24) 21 mg TRANSDERMA DAILY PRN PRN Reason: nicotine craving Nicotine Polacrilex (Nicotine Polacrilex 2 Mg Gum) 2 mg BUCCAL Q2H PRN PRN Reason: Nicotine Cravings Olanzapine (Olanzapine 5 Mg Tablet) 5 mg PO BID PRN PRN Reason: agitation Spironolactone (Spironolactone 25 Mg Tablet) 25 mg PO DAILY [facility]; Protocol Last Admin: 02/19/25 08:44 Dose: 25 mg Thiamine HCl (Thiamine Hcl 100 Mg Tablet) 100 mg PO DAILY [facility] Last Admin: 02/19/25 08:44 Dose: 100 mg Trazodone HCl (Trazodone Hcl 50 Mg Tablet) 50 mg PO BEDTIME [facility] Last Admin: 02/19/25 21:59 Dose: 50 mg Trazodone HCl (Trazodone Hcl 100 Mg Tablet) 100 mg PO BEDTIME MRX1 PRN PRN Reason: Insomnia Warfarin Sodium (Warfarin Sodium 2.5 Mg Tablet) 2.5 mg PO DAILY@1800 [facility] Last Admin: 02/19/25 17:42 Dose: 2.5 mg Allergies Allergies Allergy/AdvReac Type Severity Reaction Status Date / Time No Known Allergies Allergy Verified 02/04/25 17:54 Assessment & Plan Assessment & Plan (1) MDD (major depressive disorder), recurrent episode, severe: Status: Acute Code(s): F33.2 - Major depressive disorder, recurrent severe without psychotic features (2) HTN (hypertension): Status: Acute Code(s): I10 - Essential (primary) hypertension (3) Atrial fibrillation: Status: Acute Code(s): I48.91 - Unspecified atrial fibrillation (4) HLD (hyperlipidemia): Status: Acute Code(s): E78.5 - Hyperlipidemia, unspecified (5) Chronic post-traumatic stress disorder (PTSD): Status: Acute Code(s): F43.12 - Post-traumatic stress disorder, chronic Plan Ms. Trevino is a 74 year-old woman with hx of MDD, PTSD, alcohol use disorder in remission who was brought via EMS to [facility] after told friend that she was having suicidal ideation with multiple plans including electrocution, OD on meds or cut her wrist. Pt was voluntary for psychiatric treatment and had reported prior psychiatric admissions to be helpful. She continues to present as hopeless, helpless, suicidal ideation although denies intent to end her life due to spiritual believes and concern of how it would impact her close friend Nimco. We discussed risks, benefits and alternative treatment options. During ED visit at [facility], pt found to be bradycardic, diltiazam was discontinued, seen by cardiology did not recommend pacemaker placement and she is due OP for a watchman procedure. However, during this hospitalist, will continue to monitor s/s of bradycardia and if noted cardiology should be consulted promptly. She is currently on clonidine although less impact on HR continue to monitor BP. She is also on aricept which does cause bradycardia. Currently, her HR has been >60. PLAN 02/06 continue tx. hopeless, helpless. may consider adding venlafaxine to remeron and abilify. 02/09 increase abilify 10mg po daily. continue remeron 30mg po qhs. 02/10 family meeting to discuss tx and results of cognitive assessments. pt seemed uplifted by idea of going to [facility]. She denied SI/HI. She reported her mood is much better today. 02/11 continue current medications. 02/12 continue tx. denies SI/HI. 02/13 taking medications, no side effects. denies SI/HI. 02/14:Continue current regimen and plans 02/15:Continue current regimen and plans. Increase trazodone to 100 mg 02/16 continue tx. plan to meet with [facility]. less depressed. No SI/HI. more visible. 02/17 continue tx. plan to dc 02/20 02/18 continue tx. 02/19 continue tx. Time Spent With Patient Time: Total time managing care of this patient today ____ minutes.
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
== END 2025-02-20 13:20 | disposition home or self-care (01) | DRG 885 ==
PROVIDERS: Nurse Practitioner Family; Nurse Practitioner Psychiatric/Mental Health; Admitting Provider Psychiatry & Neurology Forensic Psychiatry; PCP Internal Medicine; Visit Provider Psychiatry & Neurology Forensic Psychiatry
DX: F33.1 Major depressive disorder, recurrent, moderate (principal); I48.92 Unspecified atrial flutter; F43.12 Post-traumatic stress disorder, chronic; I48.91 Unspecified atrial fibrillation; E55.9 Vitamin D deficiency, unspecified; I10 Essential (primary) hypertension; F10.91 Alcohol use, unspecified, in remission; K70.30 Alcoholic cirrhosis of liver without ascites; E78.5 Hyperlipidemia, unspecified; Z79.01 Long term (current) use of anticoagulants; Z79.899 Other long term (current) drug therapy
CPT/HCPCS: 36415; 80053; 80061; 82248; 82607; 82746; 83036; 83735; 84439; 84443; 85610

== ENCOUNTER → 2025-02-04 17:26 | Outpatient (BNV) | payer MEDICARE, SELFPAY | PROVIDERS: Admitting Provider Psychiatry & Neurology Forensic Psychiatry; PCP Internal Medicine; Visit Provider Nurse Practitioner Family | DX: I10 Essential (primary) hypertension (principal); I48.91 Unspecified atrial fibrillation; E78.5 Hyperlipidemia, unspecified | CPT/HCPCS: 99221 ==

== ENCOUNTER → 2025-02-04 17:26 | Outpatient (BNV) | payer MEDICARE, SELFPAY | PROVIDERS: Admitting Provider Psychiatry & Neurology Forensic Psychiatry; PCP Internal Medicine; Visit Provider Psychiatry & Neurology Psychiatry | DX: F33.2 Major depressive disorder, recurrent severe without psychotic features (principal); F43.12 Post-traumatic stress disorder, chronic; I10 Essential (primary) hypertension; I48.91 Unspecified atrial fibrillation; E78.5 Hyperlipidemia, unspecified | CPT/HCPCS: 90792; 99231; 99232 ==